=== PATIENT | male | born 1985 | race Caucasian/White ===

== ENCOUNTER 2019-10-28 11:38 | Inpatient (IN) | payer OTHER ==
[~2019-10-28] VITALS: Ht 177.8 cm; Wt 77.4 kg
[2019-10-28] MEDS ORDERED: BENZ1TAB10 PO (12:05)
[2019-10-28] MEDS ORDERED: RISP3 PO (12:05)
[2019-10-28] MEDS ORDERED: FLUO-191 PO (12:05)
[2019-10-28] MEDS ORDERED: IBUP-2071 PO (12:05)
[2019-10-28 12:30] LABS: BASOPHILS % (AUTO) 0.7 % (0.0-2.0); EOSINOPHILS % (AUTO) 4.2 % (1.0-6.0); HEMATOCRIT 40.8 % (41-53); HEMOGLOBIN 13.9 g/dL (13.5-17.5); LYMPHOCYTES # (AUTO) 1.4 K/uL (1.0-4.8); LYMPHOCYTES % (AUTO) 30.2 % (22.0-44.0); MEAN CORPUSCULAR HEMOGLOBIN 30.8 pg (26.0-34.0); MEAN CORPUSCULAR HGB CONC 34.1 G/dL (31.0-37.0); MEAN CORPUSCULAR VOLUME 90 fL (80-100); MONOCYTES # (AUTO) 0.4 K/uL (0.1-1.0); MONOCYTES % (AUTO) 7.6 % (2.0-9.0); NEUTROPHILS # (AUTO) 2.7 K/uL (1.8-7.7); NEUTROPHILS % (AUTO) 57.3 % (40.0-70.0); PLATELET COUNT (AUTO) 212 K/uL (150-450); RED BLOOD CELL COUNT(AUTO) 4.52 MIL/uL (4.50-5.90); RED CELL DISTRIBUTION WIDTH 13.8 % (11.5-14.5)
[2019-10-28 12:40] LABS: ANION GAP 6 mmol/L (8-16); CALCIUM, TOTAL 9.4 mg/dL (8.8-10.5); CARBON DIOXIDE 30 mmol/L (22-29); CHLORIDE 104 mmol/L (98-107); CREATININE 0.64 mg/dL (0.60-1.30); GLOMERULAR FILTR. RATE CALC > 60 mL/min (>60); GLUCOSE,RANDOM 105 mg/dL (70-110); POTASSIUM 4.2 mmol/L (3.5-5.1); SODIUM SERUM 140 mmol/L (136-145); UREA NITROGEN, BLOOD 8 mg/dL (7-18)
[2019-10-28 12:46] LABS: ALANINE AMINOTRANSFERASE 45 U/L (12-78); ALBUMIN 3.7 g/dL (3.4-5.0); ALKALINE PHOSPHATASE 53 U/L (46-116); ASPARTATE AMINOTRANSFERASE 38 U/L (15-37); BILIRUBIN,TOTAL 0.4 mg/dL (0.1-1.0); TOTAL PROTEIN, SERUM 7.5 g/dL (6.4-8.2)
[2019-10-28] MEDS ORDERED: ONDANSETRON HCL 4 MG/2 ML VIAL IVP PRN (15:00)
[2019-10-28] MEDS ORDERED: ACETAMINOPHEN 325 MG TABLET PO PRN (15:00)
[2019-10-28] MEDS ORDERED: 0.9% SODIUM CHLORIDE 10 ML SYRINGE IVP PRN (15:00)
[2019-10-28] MEDS ORDERED: ALBUTEROL SULFATE HFA 90 MCG/PUFF 8 GM INHALER IH PRN (16:15)
[2019-10-28] MEDS ORDERED: LOPERAMIDE HCL 2 MG CAPSULE PO PRN (16:15)
[2019-10-28] MEDS ORDERED: PETROLATUM,WHITE 28 GM JELLY TP PRN (16:15)
[2019-10-28] MEDS ORDERED: GuaiFENesin/D-METHORPHAN [SUGAR-FREE] 200-20MG/10 ML SYRUP UDCUP PO PRN (16:15)
[2019-10-28] MEDS ORDERED: ONDANSETRON HCL 4 MG TABLET PO PRN (16:15)
[2019-10-28] MEDS ORDERED: NICOTINE 14 MG/24 HOUR PATCH TD PRN (16:15)
[2019-10-28] MEDS ORDERED: INFLUENZA VIRUS VACCINE QVS 2019-20 (3YR+)/PF 60 MCG/0.5 ML SYRINGE IM ONE (16:15)
[2019-10-28] MEDS ORDERED: MAGNESIUM HYDROXIDE SUSPENSION 30 ML UDCUP PO PRN (16:15)
[2019-10-28] MEDS ORDERED: MAG HYDROX/AL HYDROX/SIMETH ES 30 ML SUSPENSION UDCUP PO PRN (16:15)
[2019-10-28] MEDS ORDERED: CloNIDine HCL 0.1 MG TABLET PO PRN (16:15)
[2019-10-28 18:34] LABS: APPEARANCE,URINE CLEAR (CLEAR); BILIRUBIN,URINE NEGATIVE (NEGATIVE); GLUCOSE, URINE (UA) NEGATIVE (NEGATIVE); KETONES,URINE NEGATIVE (NEGATIVE); LEUKOCYTE ESTERASE ,URINE NEGATIVE (NEGATIVE); NITRATE,URINE NEGATIVE (NEGATIVE); OCCULT BLOOD,URINE NEGATIVE (NEGATIVE); PROTEIN,URINE NEGATIVE (NEGATIVE); UROBILINOGEN,URINE 0.2 mg/dL (<=1.0)
[2019-10-28 18:39] LABS: AMPHET/METH SCREEN,URINE NEGATIVE (NEGATIVE); BARBITURATE SCREEN, URINE NEGATIVE (NEGATIVE); BENZODIAZEPINES SCREEN,URINE NEGATIVE (NEGATIVE); CANNABINOID SCREEN,URINE NEGATIVE (NEGATIVE); COCAINE SCREEN,URINE NEGATIVE (NEGATIVE); METHADONE SCREEN, URINE NEGATIVE (NEGATIVE); OPIATE SCREEN,URINE NEGATIVE (NEGATIVE); PHENCYCLIDINE SCREEN,URINE NEGATIVE (NEGATIVE)
[2019-10-28] MEDS ORDERED: ZOLPIDEM TARTRATE 5 MG TABLET PO ONE (20:15)
[2019-10-28 20:31] VITALS: BP 125/77
[2019-10-29 05:30] VITALS: BP 105/70
[2019-10-29 08:35] VITALS: BP 112/79
[2019-10-29] MEDS: ACETAMINOPHEN 325 MG TABLET PO PRN (09:47)
[2019-10-29] MEDS: FLUoxetine HCL 20 MG CAPSULE PO SCH (18:19)
[2019-10-29 20:10] VITALS: BP 123/67
[2019-10-29] MEDS: BusPIRone HCL 10 MG TABLET PO SCH (20:16)
[2019-10-29] MEDS: BENZTROPINE MESYLATE 1 MG TABLET PO SCH (20:16)
[2019-10-29] MEDS: RisperiDONE 3 MG TABLET PO SCH (20:16)
[2019-10-30 05:35] VITALS: BP 106/64
[2019-10-30 07:21] VITALS: BP 123/70
[2019-10-30] MEDS: FLUoxetine HCL 20 MG CAPSULE PO SCH (09:31)
[2019-10-30] MEDS: BENZTROPINE MESYLATE 1 MG TABLET PO SCH ×2 (09:31→20:11)
[2019-10-30] MEDS: BusPIRone HCL 10 MG TABLET PO SCH ×2 (09:31→20:11)
[2019-10-30 16:00] VITALS: BP 115/63
[2019-10-30 19:18] VITALS: BP 119/70
[2019-10-30] MEDS: RisperiDONE 3 MG TABLET PO SCH (20:11)
[2019-10-31 04:28] VITALS: BP 107/64
[2019-10-31 07:40] VITALS: BP 99/51
[2019-10-31] MEDS: FLUoxetine HCL 20 MG CAPSULE PO SCH (07:58)
[2019-10-31] MEDS: BENZTROPINE MESYLATE 1 MG TABLET PO SCH ×2 (07:59→20:14)
[2019-10-31] MEDS: BusPIRone HCL 10 MG TABLET PO SCH ×2 (07:59→20:14)
[2019-10-31 15:38] VITALS: BP 121/65
[2019-10-31] MEDS: RisperiDONE 3 MG TABLET PO SCH (20:16)
[2019-10-31 20:39] VITALS: BP 123/69
[2019-11-01 04:11] VITALS: BP 113/56
[2019-11-01] MEDS: BENZTROPINE MESYLATE 1 MG TABLET PO SCH ×2 (08:09→20:31)
[2019-11-01] MEDS: BusPIRone HCL 10 MG TABLET PO SCH ×2 (08:09→20:31)
[2019-11-01] MEDS: FLUoxetine HCL 20 MG CAPSULE PO SCH (08:10)
[2019-11-01 08:39] VITALS: BP 122/65
[2019-11-01 16:10] VITALS: BP 136/77
[2019-11-01 20:00] VITALS: BP 122/81
[2019-11-01] MEDS: RisperiDONE 2 MG TABLET PO SCH (20:31)
[2019-11-02 04:00] VITALS: BP 130/69
[2019-11-02 07:26] VITALS: BP 111/72
[2019-11-02] MEDS: BENZTROPINE MESYLATE 1 MG TABLET PO SCH ×2 (08:22→20:17)
[2019-11-02] MEDS: DOCUSATE SODIUM 100 MG CAPSULE PO PRN (08:22)
[2019-11-02] MEDS: FLUoxetine HCL 20 MG CAPSULE PO SCH (08:22)
[2019-11-02] MEDS: RisperiDONE 2 MG TABLET PO SCH ×2 (08:23→20:17)
[2019-11-02] MEDS: BusPIRone HCL 10 MG TABLET PO SCH ×3 (08:23→20:17)
[2019-11-02 16:10] VITALS: BP 122/66
[2019-11-02] MEDS: IBUPROFEN 400 MG TABLET PO PRN (16:24)
[2019-11-02 20:05] VITALS: BP 100/50
[2019-11-03 05:00] VITALS: BP 117/69
[2019-11-03 07:45] VITALS: BP 112/65
[2019-11-03] MEDS: RisperiDONE 2 MG TABLET PO SCH (07:51)
[2019-11-03] MEDS: BusPIRone HCL 10 MG TABLET PO SCH ×3 (07:51→20:06)
[2019-11-03] MEDS: BENZTROPINE MESYLATE 1 MG TABLET PO SCH ×2 (07:51→20:06)
[2019-11-03] MEDS: FLUoxetine HCL 20 MG CAPSULE PO SCH (07:51)
[2019-11-03 14:31] VITALS: BP 118/69
[2019-11-03] MEDS: IBUPROFEN 400 MG TABLET PO PRN (16:12)
[2019-11-03 19:28] VITALS: BP 122/78
[2019-11-03] MEDS: RisperiDONE 3 MG TABLET PO SCH (20:06)
[2019-11-04 05:29] VITALS: BP 121/71
[2019-11-04 07:25] VITALS: BP 118/69
[2019-11-04] MEDS: RisperiDONE 3 MG TABLET PO SCH ×2 (07:52→20:33)
[2019-11-04] MEDS: BusPIRone HCL 10 MG TABLET PO SCH ×3 (07:52→20:33)
[2019-11-04] MEDS: BENZTROPINE MESYLATE 1 MG TABLET PO SCH ×2 (07:52→20:33)
[2019-11-04] MEDS: FLUoxetine HCL 20 MG CAPSULE PO SCH (07:52)
[2019-11-04 08:19] LABS: BASOPHILS % (AUTO) 0.5 % (0.0-2.0); EOSINOPHILS % (AUTO) 3.8 % (1.0-6.0); HEMATOCRIT 39.7 % (41-53); HEMOGLOBIN 13.5 g/dL (13.5-17.5); LYMPHOCYTES # (AUTO) 2.3 K/uL (1.0-4.8); LYMPHOCYTES % (AUTO) 43.5 % (22.0-44.0); MEAN CORPUSCULAR HEMOGLOBIN 30.9 pg (26.0-34.0); MEAN CORPUSCULAR HGB CONC 34.1 G/dL (31.0-37.0); MEAN CORPUSCULAR VOLUME 91 fL (80-100); MONOCYTES # (AUTO) 0.6 K/uL (0.1-1.0); NEUTROPHILS # (AUTO) 2.1 K/uL (1.8-7.7); NEUTROPHILS % (AUTO) 41.2 % (40.0-70.0); PLATELET COUNT (AUTO) 255 K/uL (150-450); RED BLOOD CELL COUNT(AUTO) 4.38 MIL/uL (4.50-5.90); RED CELL DISTRIBUTION WIDTH 13.6 % (11.5-14.5)
[2019-11-04 08:32] LABS: ANION GAP 7 mmol/L (8-16); CALCIUM, TOTAL 8.7 mg/dL (8.8-10.5); CARBON DIOXIDE 29 mmol/L (22-29); CHLORIDE 104 mmol/L (98-107); CREATININE 0.75 mg/dL (0.60-1.30); GLOMERULAR FILTR. RATE CALC > 60 mL/min (>60); GLUCOSE,RANDOM 78 mg/dL (70-110); POTASSIUM 4.1 mmol/L (3.5-5.1); SODIUM SERUM 140 mmol/L (136-145); UREA NITROGEN, BLOOD 9 mg/dL (7-18)
[2019-11-04] MEDS: IBUPROFEN 400 MG TABLET PO PRN (13:44)
[2019-11-04 16:39] VITALS: BP 116/70
[2019-11-04 19:33] VITALS: BP 124/70
[2019-11-05 04:20] VITALS: BP 97/57
[2019-11-05 07:59] VITALS: BP 114/63
[2019-11-05] MEDS: BENZTROPINE MESYLATE 1 MG TABLET PO SCH ×2 (08:55→20:20)
[2019-11-05] MEDS: IBUPROFEN 400 MG TABLET PO PRN (08:55)
[2019-11-05] MEDS: FLUoxetine HCL 20 MG CAPSULE PO SCH (08:55)
[2019-11-05] MEDS: RisperiDONE 3 MG TABLET PO SCH ×2 (08:56→20:19)
[2019-11-05] MEDS: BusPIRone HCL 10 MG TABLET PO SCH ×3 (09:19→20:19)
[2019-11-05] MEDS: ACETAMINOPHEN 325 MG TABLET PO PRN (14:33)
[2019-11-05 16:19] VITALS: BP 136/78
[2019-11-05 20:01] VITALS: BP 117/75
[2019-11-06 00:06] VITALS: BP 114/70
[2019-11-06 05:08] VITALS: BP 114/64
[2019-11-06 07:49] VITALS: BP 118/71
[2019-11-06] MEDS: BusPIRone HCL 10 MG TABLET PO SCH ×3 (08:04→20:15)
[2019-11-06] MEDS: FLUoxetine HCL 20 MG CAPSULE PO SCH (08:04)
[2019-11-06] MEDS: BENZTROPINE MESYLATE 1 MG TABLET PO SCH ×2 (08:05→20:15)
[2019-11-06] MEDS: RisperiDONE 3 MG TABLET PO SCH ×2 (08:05→21:11)
[2019-11-06] MEDS: ACETAMINOPHEN 325 MG TABLET PO PRN (18:48)
[2019-11-07 04:53] VITALS: BP 118/65
[2019-11-07 07:32] VITALS: BP 99/51
[2019-11-07] MEDS: BusPIRone HCL 10 MG TABLET PO SCH ×3 (08:16→20:39)
[2019-11-07] MEDS: BENZTROPINE MESYLATE 1 MG TABLET PO SCH ×2 (08:16→20:38)
[2019-11-07] MEDS: RisperiDONE 3 MG TABLET PO SCH ×2 (08:16→20:39)
[2019-11-07] MEDS: FLUoxetine HCL 20 MG CAPSULE PO SCH (08:16)
[2019-11-07] MEDS: ACETAMINOPHEN 325 MG TABLET PO PRN (09:59)
[2019-11-07] MEDS: DIVALPROEX SODIUM 500 MG DR TABLET PO SCH ×2 (12:59→20:39)
[2019-11-07 16:20] VITALS: BP 122/76
[2019-11-08 00:17] VITALS: BP 100/54
[2019-11-08 04:56] VITALS: BP 103/57
[2019-11-08] MEDS: DIVALPROEX SODIUM 500 MG DR TABLET PO SCH ×2 (08:10→20:31)
[2019-11-08] MEDS: RisperiDONE 3 MG TABLET PO SCH ×2 (08:10→20:31)
[2019-11-08] MEDS: BENZTROPINE MESYLATE 1 MG TABLET PO SCH ×2 (08:10→20:31)
[2019-11-08] MEDS: BusPIRone HCL 10 MG TABLET PO SCH ×3 (08:10→20:31)
[2019-11-08] MEDS: FLUoxetine HCL 20 MG CAPSULE PO SCH (08:10)
[2019-11-08 08:15] VITALS: BP 131/81
[2019-11-08 16:02] VITALS: BP 118/71
[2019-11-08] MEDS: ACETAMINOPHEN 325 MG TABLET PO PRN (18:53)
[2019-11-08 19:50] VITALS: BP 123/67
[2019-11-09 05:20] VITALS: BP 106/67
[2019-11-09] MEDS: RisperiDONE 3 MG TABLET PO SCH ×2 (07:55→22:13)
[2019-11-09] MEDS: FLUoxetine HCL 20 MG CAPSULE PO SCH (07:55)
[2019-11-09] MEDS: BusPIRone HCL 10 MG TABLET PO SCH ×3 (07:55→22:12)
[2019-11-09] MEDS: DIVALPROEX SODIUM 500 MG DR TABLET PO SCH ×2 (07:56→22:12)
[2019-11-09] MEDS: BENZTROPINE MESYLATE 1 MG TABLET PO SCH ×2 (07:56→22:12)
[2019-11-09 08:21] VITALS: BP 111/64
[2019-11-09] MEDS: IBUPROFEN 400 MG TABLET PO PRN (11:16)
[2019-11-09] MEDS: ACETAMINOPHEN 325 MG TABLET PO PRN (13:32)
[2019-11-09 16:04] VITALS: BP 121/69
[2019-11-09 20:27] VITALS: BP 126/67
[2019-11-10 05:57] VITALS: BP 127/73
[2019-11-10] MEDS: RisperiDONE 3 MG TABLET PO SCH (08:23)
[2019-11-10] MEDS: BENZTROPINE MESYLATE 1 MG TABLET PO SCH ×2 (08:24→20:06)
[2019-11-10] MEDS: DOCUSATE SODIUM 100 MG CAPSULE PO PRN (08:24)
[2019-11-10] MEDS: DIVALPROEX SODIUM 500 MG DR TABLET PO SCH ×2 (08:24→20:05)
[2019-11-10] MEDS: BusPIRone HCL 10 MG TABLET PO SCH ×3 (08:24→20:06)
[2019-11-10] MEDS: FLUoxetine HCL 20 MG CAPSULE PO SCH (08:24)
[2019-11-10 08:25] VITALS: BP 125/77
[2019-11-10 11:30] VITALS: BP 116/70
[2019-11-10] MEDS: ACETAMINOPHEN 325 MG TABLET PO PRN (13:11)
[2019-11-10 14:43] VITALS: BP 105/64
[2019-11-10 19:15] VITALS: BP 112/72
[2019-11-10] MEDS: RisperiDONE 4 MG TABLET PO SCH (20:06)
[2019-11-11 03:00] VITALS: BP 109/75
[2019-11-11] MEDS: ACETAMINOPHEN 325 MG TABLET PO PRN ×2 (03:26→12:02)
[2019-11-11] MEDS: DOCUSATE SODIUM 100 MG CAPSULE PO PRN (08:35)
[2019-11-11] MEDS: FLUoxetine HCL 20 MG CAPSULE PO SCH (08:35)
[2019-11-11] MEDS: DIVALPROEX SODIUM 500 MG DR TABLET PO SCH ×2 (08:35→19:50)
[2019-11-11] MEDS: BENZTROPINE MESYLATE 1 MG TABLET PO SCH ×2 (08:35→19:50)
[2019-11-11] MEDS: BusPIRone HCL 10 MG TABLET PO SCH ×3 (08:35→19:50)
[2019-11-11] MEDS: RisperiDONE 4 MG TABLET PO SCH ×2 (08:35→19:50)
[2019-11-11 10:03] VITALS: BP 104/66
[2019-11-11 16:02] VITALS: BP 123/68
[2019-11-11 19:32] VITALS: BP 122/76
[2019-11-12 04:43] VITALS: BP 116/94
[2019-11-12] MEDS: FLUoxetine HCL 20 MG CAPSULE PO SCH (08:04)
[2019-11-12] MEDS: DIVALPROEX SODIUM 500 MG DR TABLET PO SCH ×2 (08:04→20:32)
[2019-11-12] MEDS: BENZTROPINE MESYLATE 1 MG TABLET PO SCH ×2 (08:04→20:32)
[2019-11-12] MEDS: BusPIRone HCL 10 MG TABLET PO SCH (08:04)
[2019-11-12] MEDS: RisperiDONE 4 MG TABLET PO SCH ×2 (08:04→20:32)
[2019-11-12 08:07] VITALS: BP 110/65
[2019-11-12] MEDS: ACETAMINOPHEN 325 MG TABLET PO PRN (10:35)
[2019-11-12 13:56] VITALS: BP 101/58
[2019-11-12] MEDS: BusPIRone HCL 15 MG TABLET PO SCH ×2 (15:20→20:33)
[2019-11-12 16:12] VITALS: BP 112/68
[2019-11-12 20:01] VITALS: BP 116/62
[2019-11-13 04:00] VITALS: BP 119/62
[2019-11-13 08:04] VITALS: BP 111/63
[2019-11-13] MEDS: DIVALPROEX SODIUM 500 MG DR TABLET PO SCH ×2 (08:34→19:53)
[2019-11-13] MEDS: BENZTROPINE MESYLATE 1 MG TABLET PO SCH ×2 (08:34→19:53)
[2019-11-13] MEDS: RisperiDONE 4 MG TABLET PO SCH ×2 (08:34→19:53)
[2019-11-13] MEDS: BusPIRone HCL 15 MG TABLET PO SCH ×3 (08:34→19:53)
[2019-11-13] MEDS: FLUoxetine HCL 20 MG CAPSULE PO SCH (08:34)
[2019-11-13 15:04] VITALS: BP 107/68
[2019-11-13 19:41] VITALS: BP 109/65
[2019-11-14 05:23] VITALS: BP 119/68
[2019-11-14] MEDS: FLUoxetine HCL 20 MG CAPSULE PO SCH (08:24)
[2019-11-14] MEDS: DIVALPROEX SODIUM 500 MG DR TABLET PO SCH ×2 (08:24→20:23)
[2019-11-14] MEDS: BENZTROPINE MESYLATE 1 MG TABLET PO SCH ×2 (08:24→20:23)
[2019-11-14] MEDS: BusPIRone HCL 15 MG TABLET PO SCH ×3 (08:24→20:23)
[2019-11-14] MEDS: RisperiDONE 4 MG TABLET PO SCH ×2 (08:24→20:23)
[2019-11-14 08:26] VITALS: BP 126/65
[2019-11-14 16:22] VITALS: BP 114/56
[2019-11-14] MEDS: ACETAMINOPHEN 325 MG TABLET PO PRN (18:45)
[2019-11-14 19:30] VITALS: BP 115/70
[2019-11-14 23:30] VITALS: BP 112/68
[2019-11-15 04:30] VITALS: BP 117/65
[2019-11-15 07:45] VITALS: BP 110/69
[2019-11-15] MEDS: BENZTROPINE MESYLATE 1 MG TABLET PO SCH ×2 (08:04→20:14)
[2019-11-15] MEDS: RisperiDONE 4 MG TABLET PO SCH ×2 (08:05→20:14)
[2019-11-15] MEDS: DIVALPROEX SODIUM 500 MG DR TABLET PO SCH ×2 (08:05→20:13)
[2019-11-15] MEDS: BusPIRone HCL 15 MG TABLET PO SCH ×3 (08:05→20:14)
[2019-11-15] MEDS: FLUoxetine HCL 20 MG CAPSULE PO SCH (08:05)
[2019-11-15 11:50] VITALS: BP 108/61
[2019-11-15] MEDS: FLUTICASONE PROPIONATE 50 MCG/SPRAY 16 GM NASAL SPRAY NASAL SCH (16:02)
[2019-11-15 16:44] VITALS: BP 106/67
[2019-11-15 20:18] VITALS: BP 101/62
[2019-11-16 04:00] VITALS: BP 112/68
[2019-11-16 08:07] VITALS: BP 125/75
[2019-11-16] MEDS: FLUTICASONE PROPIONATE 50 MCG/SPRAY 16 GM NASAL SPRAY NASAL SCH (09:51)
[2019-11-16] MEDS: BusPIRone HCL 15 MG TABLET PO SCH ×3 (09:53→20:27)
[2019-11-16] MEDS: BENZTROPINE MESYLATE 1 MG TABLET PO SCH ×2 (09:54→20:27)
[2019-11-16] MEDS: DIVALPROEX SODIUM 500 MG DR TABLET PO SCH ×2 (09:55→20:27)
[2019-11-16] MEDS: FLUoxetine HCL 20 MG CAPSULE PO SCH (09:56)
[2019-11-16] MEDS: RisperiDONE 4 MG TABLET PO SCH ×2 (09:57→20:27)
[2019-11-16 14:36] VITALS: BP 112/70
[2019-11-16] MEDS: ACETAMINOPHEN 325 MG TABLET PO PRN (18:49)
[2019-11-16 19:40] VITALS: BP 115/71
[2019-11-17 04:28] VITALS: BP 108/66
[2019-11-17] MEDS: FLUTICASONE PROPIONATE 50 MCG/SPRAY 16 GM NASAL SPRAY NASAL SCH (04:32)
[2019-11-17 08:00] VITALS: BP 127/69
[2019-11-17] MEDS: BusPIRone HCL 15 MG TABLET PO SCH ×3 (08:48→20:59)
[2019-11-17] MEDS: BENZTROPINE MESYLATE 1 MG TABLET PO SCH ×2 (08:48→20:59)
[2019-11-17] MEDS: RisperiDONE 4 MG TABLET PO SCH ×2 (08:49→20:59)
[2019-11-17] MEDS: DIVALPROEX SODIUM 500 MG DR TABLET PO SCH ×2 (08:49→20:59)
[2019-11-17] MEDS: FLUoxetine HCL 20 MG CAPSULE PO SCH (08:50)
[2019-11-17 15:20] VITALS: BP 105/70
[2019-11-17 19:45] VITALS: BP 115/76
[2019-11-18 04:26] VITALS: BP 105/66
[2019-11-18] MEDS: BusPIRone HCL 15 MG TABLET PO SCH (08:04)
[2019-11-18] MEDS: FLUTICASONE PROPIONATE 50 MCG/SPRAY 16 GM NASAL SPRAY NASAL SCH (08:04)
[2019-11-18] MEDS: FLUoxetine HCL 20 MG CAPSULE PO SCH (08:05)
[2019-11-18] MEDS: RisperiDONE 4 MG TABLET PO SCH (08:05)
[2019-11-18] MEDS: DIVALPROEX SODIUM 500 MG DR TABLET PO SCH (08:05)
[2019-11-18 08:19] VITALS: BP 108/61
[2019-11-18] MEDS ORDERED: DIVA500T52 PO (08:19)
[2019-11-18] MEDS ORDERED: BENZ1TAB10 PO (08:20)
[2019-11-18] MEDS ORDERED: BUSP15 PO ×2 (08:23)
[2019-11-18] MEDS ORDERED: RISP4 PO (08:25)
[2019-11-18] MEDS: BENZTROPINE MESYLATE 1 MG TABLET PO SCH (08:40)
== END 2019-11-18 12:45 | DRG 885 ==
LOC: EMS 11:39 → 6S 14:55
PROVIDERS: ADMIT Internal Medicine; ATTEND Internal Medicine
DX: F20.9 Schizophrenia, unspecified (principal); R45.851 Suicidal ideations; F17.200 Nicotine dependence, unspecified, uncomplicated; F41.9 Anxiety disorder, unspecified; Z23 Encounter for immunization
CPT/HCPCS: 83735; 90686; G0480; J3535

== ENCOUNTER 2019-11-26 01:53 | Inpatient (IN) | payer OTHER ==
[~2019-11-26] VITALS: Ht 172.7 cm; Wt 78.6 kg
[~2019-11-26 01:53] MED LIST: BENZ1TAB10 PO; BUSP15 PO; DIVA500T52 PO; FLUO-191 PO; IBUP-2071 PO; RISP4 PO
[2019-11-26] MEDS ORDERED: PERTUSS(ACELL),DIPH,TET VAC/PF 0.5 ML VIAL IM ONE (02:15)
[2019-11-26] MEDS ORDERED: BACITRACIN 0.9 GM PACKET OINTMENT TP ONE (02:15)
[2019-11-26] MEDS ORDERED: 0.9% SODIUM CHLORIDE 10 ML SYRINGE IVP PRN ×2 (02:30→14:30)
[2019-11-26] MEDS ORDERED: ACETAMINOPHEN 325 MG TABLET PO PRN (02:30)
[2019-11-26] MEDS ORDERED: ONDANSETRON HCL 4 MG/2 ML VIAL IVP PRN ×2 (02:30→14:30)
[2019-11-26 02:48] LABS: BASOPHILS % (AUTO) 0.4 % (0.0-2.0); EOSINOPHILS % (AUTO) 2.3 % (1.0-6.0); HEMATOCRIT 42.7 % (41-53); HEMOGLOBIN 14.3 g/dL (13.5-17.5); LYMPHOCYTES # (AUTO) 2.1 K/uL (1.0-4.8); LYMPHOCYTES % (AUTO) 39.2 % (22.0-44.0); MEAN CORPUSCULAR HEMOGLOBIN 30.1 pg (26.0-34.0); MEAN CORPUSCULAR HGB CONC 33.5 G/dL (31.0-37.0); MEAN CORPUSCULAR VOLUME 90 fL (80-100); MONOCYTES # (AUTO) 0.5 K/uL (0.1-1.0); MONOCYTES % (AUTO) 9.8 % (2.0-9.0); NEUTROPHILS # (AUTO) 2.6 K/uL (1.8-7.7); NEUTROPHILS % (AUTO) 48.3 % (40.0-70.0); PLATELET COUNT (AUTO) 201 K/uL (150-450); RED BLOOD CELL COUNT(AUTO) 4.75 MIL/uL (4.50-5.90); RED CELL DISTRIBUTION WIDTH 13.7 % (11.5-14.5)
[2019-11-26 02:52] LABS: ANION GAP 10 mmol/L (8-16); CARBON DIOXIDE 28 mmol/L (22-29); CHLORIDE 102 mmol/L (98-107); CREATININE 0.83 mg/dL (0.60-1.30); GLOMERULAR FILTR. RATE CALC > 60 mL/min (>60); GLUCOSE,RANDOM 88 mg/dL (70-110); POTASSIUM 3.5 mmol/L (3.5-5.1); SODIUM SERUM 140 mmol/L (136-145); UREA NITROGEN, BLOOD 8 mg/dL (7-18)
[2019-11-26 02:57] LABS: ALANINE AMINOTRANSFERASE 23 U/L (12-78); ALBUMIN 3.9 g/dL (3.4-5.0); ALKALINE PHOSPHATASE 56 U/L (46-116); ASPARTATE AMINOTRANSFERASE 11 U/L (15-37); BILIRUBIN,TOTAL 0.2 mg/dL (0.1-1.0); TOTAL PROTEIN, SERUM 7.8 g/dL (6.4-8.2)
[2019-11-26 03:34] LABS: AMPHET/METH SCREEN,URINE NEGATIVE (NEGATIVE); BARBITURATE SCREEN, URINE NEGATIVE (NEGATIVE); BENZODIAZEPINES SCREEN,URINE NEGATIVE (NEGATIVE); CANNABINOID SCREEN,URINE NEGATIVE (NEGATIVE); COCAINE SCREEN,URINE NEGATIVE (NEGATIVE); METHADONE SCREEN, URINE NEGATIVE (NEGATIVE); OPIATE SCREEN,URINE NEGATIVE (NEGATIVE)
[2019-11-26 03:41] LABS: PHENCYCLIDINE SCREEN,URINE NEGATIVE (NEGATIVE)
[2019-11-26 03:50] VITALS: BP 135/78
[2019-11-26 07:28] VITALS: BP 95/59
[2019-11-26] MEDS ORDERED: ONDANSETRON HCL 4 MG/2 ML VIAL PO PRN (08:30)
[2019-11-26] MEDS: DIVALPROEX SODIUM 500 MG ER TABLET PO SCH ×2 (11:19→20:15)
[2019-11-26] MEDS: FLUoxetine HCL 20 MG CAPSULE PO SCH (11:19)
[2019-11-26] MEDS: BusPIRone HCL 15 MG TABLET PO SCH ×2 (11:19→20:15)
[2019-11-26] MEDS: OLANZapine 10 MG TABLET PO SCH ×2 (11:19→20:15)
[2019-11-26] MEDS ORDERED: OxyCODONE HCL/ACETAMINOPHEN 5-325 MG TABLET PO PRN ×2 (14:30)
[2019-11-26 16:00] VITALS: BP 108/58
[2019-11-26 19:50] VITALS: BP 113/73
[2019-11-26] MEDS: DOCUSATE SODIUM 100 MG CAPSULE PO SCH (20:15)
[2019-11-26] MEDS: BENZTROPINE MESYLATE 1 MG TABLET PO SCH (20:15)
[2019-11-27 04:10] VITALS: BP 109/76
[2019-11-27 07:37] VITALS: BP 133/78
[2019-11-27 07:51] LABS: BASOPHILS % (AUTO) 0.2 % (0.0-2.0); HEMATOCRIT 43.1 % (41-53); HEMOGLOBIN 14.6 g/dL (13.5-17.5); LYMPHOCYTES # (AUTO) 2.5 K/uL (1.0-4.8); LYMPHOCYTES % (AUTO) 28.9 % (22.0-44.0); MEAN CORPUSCULAR HEMOGLOBIN 30.7 pg (26.0-34.0); MEAN CORPUSCULAR HGB CONC 33.9 G/dL (31.0-37.0); MEAN CORPUSCULAR VOLUME 91 fL (80-100); MONOCYTES # (AUTO) 0.9 K/uL (0.1-1.0); MONOCYTES % (AUTO) 9.9 % (2.0-9.0); NEUTROPHILS # (AUTO) 5.1 K/uL (1.8-7.7); PLATELET COUNT (AUTO) 202 K/uL (150-450); RED BLOOD CELL COUNT(AUTO) 4.75 MIL/uL (4.50-5.90); RED CELL DISTRIBUTION WIDTH 13.5 % (11.5-14.5)
[2019-11-27 08:00] LABS: ANION GAP 8 mmol/L (8-16); CALCIUM, TOTAL 8.8 mg/dL (8.8-10.5); CARBON DIOXIDE 29 mmol/L (22-29); CHLORIDE 103 mmol/L (98-107); GLOMERULAR FILTR. RATE CALC > 60 mL/min (>60); GLUCOSE,RANDOM 78 mg/dL (70-110); POTASSIUM 3.9 mmol/L (3.5-5.1); SODIUM SERUM 140 mmol/L (136-145); UREA NITROGEN, BLOOD 10 mg/dL (7-18)
[2019-11-27] MEDS: OLANZapine 10 MG TABLET PO SCH ×2 (08:09→20:04)
[2019-11-27] MEDS: BusPIRone HCL 15 MG TABLET PO SCH ×2 (08:09→20:04)
[2019-11-27] MEDS: FLUoxetine HCL 20 MG CAPSULE PO SCH (08:10)
[2019-11-27] MEDS: DOCUSATE SODIUM 100 MG CAPSULE PO SCH ×2 (08:10→20:04)
[2019-11-27] MEDS: DIVALPROEX SODIUM 500 MG ER TABLET PO SCH ×2 (08:10→20:04)
[2019-11-27 16:21] VITALS: BP 108/72
[2019-11-27 19:34] VITALS: BP 127/71
[2019-11-27] MEDS: BENZTROPINE MESYLATE 1 MG TABLET PO SCH (21:00)
[2019-11-28 04:29] VITALS: BP 127/69
[2019-11-28 07:59] LABS: BASOPHILS % (AUTO) 0.5 % (0.0-2.0); EOSINOPHILS % (AUTO) 3.3 % (1.0-6.0); HEMATOCRIT 42.5 % (41-53); HEMOGLOBIN 14.5 g/dL (13.5-17.5); LYMPHOCYTES # (AUTO) 2.7 K/uL (1.0-4.8); MEAN CORPUSCULAR HEMOGLOBIN 30.7 pg (26.0-34.0); MEAN CORPUSCULAR HGB CONC 34.2 G/dL (31.0-37.0); MEAN CORPUSCULAR VOLUME 90 fL (80-100); MONOCYTES % (AUTO) 13.3 % (2.0-9.0); NEUTROPHILS # (AUTO) 3.3 K/uL (1.8-7.7); NEUTROPHILS % (AUTO) 45.9 % (40.0-70.0); PLATELET COUNT (AUTO) 203 K/uL (150-450); RED BLOOD CELL COUNT(AUTO) 4.74 MIL/uL (4.50-5.90); RED CELL DISTRIBUTION WIDTH 13.7 % (11.5-14.5)
[2019-11-28 08:03] VITALS: BP 123/78
[2019-11-28 08:16] LABS: ANION GAP 9 mmol/L (8-16); CALCIUM, TOTAL 8.9 mg/dL (8.8-10.5); CARBON DIOXIDE 28 mmol/L (22-29); CHLORIDE 105 mmol/L (98-107); CHOL/HDL RATIO 4.5 (4.2-7.3); CHOLESTEROL 153 mg/dL (131-200); CREATININE 0.94 mg/dL (0.60-1.30); GLOMERULAR FILTR. RATE CALC > 60 mL/min (>60); GLUCOSE,RANDOM 87 mg/dL (70-110); HDL CHOLESTEROL 34 mg/dL (40-60); LDL CHOL (CALC.) 87 mg/dL (0-130); POTASSIUM 4.1 mmol/L (3.5-5.1); SODIUM SERUM 142 mmol/L (136-145); TRIGLYCERIDES 162 mg/dL (15-150); UREA NITROGEN, BLOOD 10 mg/dL (7-18)
[2019-11-28] MEDS: MULTIVITAMINS WITH MINERALS, THERAPEUTIC TABLET PO SCH (08:34)
[2019-11-28] MEDS: DOCUSATE SODIUM 100 MG CAPSULE PO SCH ×2 (08:34→20:03)
[2019-11-28] MEDS: BusPIRone HCL 15 MG TABLET PO SCH ×2 (08:34→20:03)
[2019-11-28] MEDS: FLUoxetine HCL 20 MG CAPSULE PO SCH (08:34)
[2019-11-28] MEDS: OLANZapine 10 MG TABLET PO SCH ×2 (08:34→20:03)
[2019-11-28] MEDS: DIVALPROEX SODIUM 500 MG ER TABLET PO SCH ×2 (08:35→20:03)
[2019-11-28 15:44] VITALS: BP 109/57
[2019-11-28] MEDS: BENZTROPINE MESYLATE 1 MG TABLET PO SCH (20:03)
[2019-11-28 20:09] VITALS: BP 118/72
[2019-11-29 04:15] VITALS: BP 113/79
[2019-11-29 06:55] LABS: BASOPHILS % (AUTO) 0.3 % (0.0-2.0); EOSINOPHILS % (AUTO) 3.5 % (1.0-6.0); HEMATOCRIT 42.8 % (41-53); HEMOGLOBIN 14.6 g/dL (13.5-17.5); LYMPHOCYTES # (AUTO) 2.4 K/uL (1.0-4.8); LYMPHOCYTES % (AUTO) 35.3 % (22.0-44.0); MEAN CORPUSCULAR HEMOGLOBIN 30.7 pg (26.0-34.0); MEAN CORPUSCULAR VOLUME 90 fL (80-100); MONOCYTES # (AUTO) 0.7 K/uL (0.1-1.0); MONOCYTES % (AUTO) 10.9 % (2.0-9.0); NEUTROPHILS # (AUTO) 3.4 K/uL (1.8-7.7); PLATELET COUNT (AUTO) 193 K/uL (150-450); RED BLOOD CELL COUNT(AUTO) 4.74 MIL/uL (4.50-5.90); RED CELL DISTRIBUTION WIDTH 13.6 % (11.5-14.5)
[2019-11-29 07:29] VITALS: BP 104/65
[2019-11-29] MEDS: DOCUSATE SODIUM 100 MG CAPSULE PO SCH ×3 (08:09→20:05)
[2019-11-29] MEDS: BusPIRone HCL 15 MG TABLET PO SCH ×3 (08:09→20:05)
[2019-11-29] MEDS: OLANZapine 10 MG TABLET PO SCH ×3 (08:09→20:05)
[2019-11-29] MEDS: MULTIVITAMINS WITH MINERALS, THERAPEUTIC TABLET PO SCH ×2 (08:09→08:24)
[2019-11-29] MEDS: FLUoxetine HCL 20 MG CAPSULE PO SCH ×2 (08:09→08:24)
[2019-11-29] MEDS: DIVALPROEX SODIUM 500 MG ER TABLET PO SCH ×3 (08:09→20:05)
[2019-11-29 15:31] VITALS: BP 111/74
[2019-11-29 19:35] VITALS: BP 119/73
[2019-11-29] MEDS: BENZTROPINE MESYLATE 1 MG TABLET PO SCH (20:05)
[2019-11-30 04:33] VITALS: BP 114/74
[2019-11-30] MEDS: DOCUSATE SODIUM 100 MG CAPSULE PO SCH ×2 (08:02→20:16)
[2019-11-30] MEDS: MULTIVITAMINS WITH MINERALS, THERAPEUTIC TABLET PO SCH (08:02)
[2019-11-30] MEDS: BusPIRone HCL 15 MG TABLET PO SCH ×2 (08:03→20:16)
[2019-11-30] MEDS: DIVALPROEX SODIUM 500 MG ER TABLET PO SCH ×2 (08:03→20:16)
[2019-11-30] MEDS: FLUoxetine HCL 20 MG CAPSULE PO SCH (08:03)
[2019-11-30] MEDS: OLANZapine 10 MG TABLET PO SCH ×2 (08:03→20:16)
[2019-11-30 08:07] VITALS: BP 110/74
[2019-11-30 08:09] LABS: BASOPHILS % (AUTO) 0.2 % (0.0-2.0); EOSINOPHILS % (AUTO) 3.6 % (1.0-6.0); HEMATOCRIT 42.2 % (41-53); HEMOGLOBIN 14.7 g/dL (13.5-17.5); LYMPHOCYTES # (AUTO) 2.5 K/uL (1.0-4.8); LYMPHOCYTES % (AUTO) 37.5 % (22.0-44.0); MEAN CORPUSCULAR HEMOGLOBIN 31.4 pg (26.0-34.0); MEAN CORPUSCULAR HGB CONC 34.8 G/dL (31.0-37.0); MEAN CORPUSCULAR VOLUME 90 fL (80-100); MONOCYTES # (AUTO) 0.7 K/uL (0.1-1.0); MONOCYTES % (AUTO) 11.3 % (2.0-9.0); NEUTROPHILS # (AUTO) 3.1 K/uL (1.8-7.7); NEUTROPHILS % (AUTO) 47.4 % (40.0-70.0); PLATELET COUNT (AUTO) 183 K/uL (150-450); RED BLOOD CELL COUNT(AUTO) 4.68 MIL/uL (4.50-5.90); RED CELL DISTRIBUTION WIDTH 13.6 % (11.5-14.5)
[2019-11-30 11:43] VITALS: BP 114/75
[2019-11-30 19:34] VITALS: BP 109/66
[2019-11-30] MEDS: BENZTROPINE MESYLATE 1 MG TABLET PO SCH (20:16)
[2019-12-01 04:43] VITALS: BP 101/59
[2019-12-01 07:19] VITALS: BP 99/71
[2019-12-01] MEDS: OLANZapine 10 MG TABLET PO SCH ×2 (08:31→20:43)
[2019-12-01] MEDS: DOCUSATE SODIUM 100 MG CAPSULE PO SCH ×2 (08:32→20:44)
[2019-12-01] MEDS: FLUoxetine HCL 20 MG CAPSULE PO SCH (08:32)
[2019-12-01] MEDS: MULTIVITAMINS WITH MINERALS, THERAPEUTIC TABLET PO SCH (08:32)
[2019-12-01] MEDS: DIVALPROEX SODIUM 500 MG ER TABLET PO SCH ×2 (08:32→20:44)
[2019-12-01] MEDS: BusPIRone HCL 15 MG TABLET PO SCH ×2 (08:32→20:43)
[2019-12-01 15:08] VITALS: BP 103/64
[2019-12-01 19:52] VITALS: BP 113/69
[2019-12-01] MEDS: LORATADINE/PSEUDOEPHED SULF 5-120 MG SR TABLET PO SCH (20:43)
[2019-12-01] MEDS: BENZTROPINE MESYLATE 1 MG TABLET PO SCH (20:43)
[2019-12-02 05:55] VITALS: BP 103/69
[2019-12-02 07:34] VITALS: BP 112/78
[2019-12-02] MEDS: OLANZapine 10 MG TABLET PO SCH ×2 (07:56→20:14)
[2019-12-02] MEDS: FLUoxetine HCL 20 MG CAPSULE PO SCH (07:56)
[2019-12-02] MEDS: BusPIRone HCL 15 MG TABLET PO SCH ×2 (07:56→20:15)
[2019-12-02] MEDS: DOCUSATE SODIUM 100 MG CAPSULE PO SCH ×2 (07:57→20:14)
[2019-12-02] MEDS: MULTIVITAMINS WITH MINERALS, THERAPEUTIC TABLET PO SCH (07:57)
[2019-12-02] MEDS: LORATADINE/PSEUDOEPHED SULF 5-120 MG SR TABLET PO SCH ×2 (07:57→20:15)
[2019-12-02] MEDS: DIVALPROEX SODIUM 500 MG ER TABLET PO SCH ×2 (07:57→20:14)
[2019-12-02 15:45] VITALS: BP 108/75
[2019-12-02 19:18] VITALS: BP 104/71
[2019-12-02] MEDS: BENZTROPINE MESYLATE 1 MG TABLET PO SCH (20:14)
[2019-12-03 06:02] VITALS: BP 101/69
[2019-12-03 07:56] VITALS: BP 119/77
[2019-12-03] MEDS: BusPIRone HCL 15 MG TABLET PO SCH (08:12)
[2019-12-03] MEDS: MULTIVITAMINS WITH MINERALS, THERAPEUTIC TABLET PO SCH (08:12)
[2019-12-03] MEDS: DIVALPROEX SODIUM 500 MG ER TABLET PO SCH (08:12)
[2019-12-03] MEDS: DOCUSATE SODIUM 100 MG CAPSULE PO SCH (08:13)
[2019-12-03] MEDS: FLUoxetine HCL 20 MG CAPSULE PO SCH (08:13)
[2019-12-03] MEDS: LORATADINE/PSEUDOEPHED SULF 5-120 MG SR TABLET PO SCH (08:13)
[2019-12-03] MEDS: OLANZapine 10 MG TABLET PO SCH (08:14)
== END 2019-12-03 19:30 | DRG 885 ==
LOC: EMS 01:54 → 6S 02:16
PROVIDERS: ADMIT Internal Medicine; ATTEND Internal Medicine
DX: F20.9 Schizophrenia, unspecified (principal); R45.851 Suicidal ideations; J06.9 Acute upper respiratory infection, unspecified; F41.9 Anxiety disorder, unspecified
CPT/HCPCS: 90715; G0480

== ENCOUNTER 2019-12-20 10:11 | Inpatient (IN) | payer OTHER ==
[~2019-12-20] VITALS: Ht 180.3 cm; Wt 86.8 kg
[2019-12-20] MEDS ORDERED: ACETAMINOPHEN 325 MG TABLET PO PRN (11:00)
[2019-12-20 11:05] LABS: BASOPHILS % (AUTO) 0.2 % (0.0-2.0); EOSINOPHILS % (AUTO) 0.1 % (1.0-6.0); HEMATOCRIT 40.8 % (41-53); HEMOGLOBIN 13.8 g/dL (13.5-17.5); LYMPHOCYTES # (AUTO) 1.2 K/uL (1.0-4.8); LYMPHOCYTES % (AUTO) 16.7 % (22.0-44.0); MEAN CORPUSCULAR HEMOGLOBIN 30.7 pg (26.0-34.0); MEAN CORPUSCULAR HGB CONC 33.8 G/dL (31.0-37.0); MEAN CORPUSCULAR VOLUME 91 fL (80-100); MONOCYTES # (AUTO) 0.4 K/uL (0.1-1.0); MONOCYTES % (AUTO) 5.9 % (2.0-9.0); NEUTROPHILS # (AUTO) 5.7 K/uL (1.8-7.7); NEUTROPHILS % (AUTO) 77.1 % (40.0-70.0); PLATELET COUNT (AUTO) 172 K/uL (150-450); RED CELL DISTRIBUTION WIDTH 13.8 % (11.5-14.5)
[2019-12-20 11:28] LABS: ANION GAP 7 mmol/L (8-16); CALCIUM, TOTAL 9.4 mg/dL (8.8-10.5); CARBON DIOXIDE 28 mmol/L (22-29); CHLORIDE 104 mmol/L (98-107); CREATININE 0.92 mg/dL (0.60-1.30); GLOMERULAR FILTR. RATE CALC > 60 mL/min (>60); GLUCOSE,RANDOM 109 mg/dL (70-110); POTASSIUM 3.9 mmol/L (3.5-5.1); SODIUM SERUM 139 mmol/L (136-145); UREA NITROGEN, BLOOD 6 mg/dL (7-18)
[2019-12-20 11:34] LABS: ALANINE AMINOTRANSFERASE 55 U/L (12-78); ALBUMIN 3.9 g/dL (3.4-5.0); ALKALINE PHOSPHATASE 46 U/L (46-116); ASPARTATE AMINOTRANSFERASE 57 U/L (15-37); BILIRUBIN,TOTAL 0.2 mg/dL (0.1-1.0); TOTAL PROTEIN, SERUM 7.7 g/dL (6.4-8.2); VALPROIC ACID 68 mcg/mL (50-100)
[2019-12-20 11:42] VITALS: BP 126/73
[2019-12-20 15:33] VITALS: BP 116/69
[2019-12-20] MEDS: FLUoxetine HCL 20 MG CAPSULE PO SCH (16:53)
[2019-12-20] MEDS: BusPIRone HCL 15 MG TABLET PO SCH (20:21)
[2019-12-20] MEDS: BENZTROPINE MESYLATE 1 MG TABLET PO SCH (20:21)
[2019-12-20] MEDS: OLANZapine 10 MG TABLET PO SCH (20:21)
[2019-12-20] MEDS: DIVALPROEX SODIUM 500 MG DR TABLET PO SCH (20:21)
[2019-12-21] MEDS ORDERED: 0.9% SODIUM CHLORIDE 10 ML SYRINGE IVP PRN (03:45)
[2019-12-21] MEDS ORDERED: OxyCODONE HCL/ACETAMINOPHEN 5-325 MG TABLET PO PRN ×2 (03:45)
[2019-12-21] MEDS ORDERED: ONDANSETRON HCL 4 MG/2 ML VIAL IVP PRN (03:45)
[2019-12-21 03:48] VITALS: BP 112/77
[2019-12-21 07:45] VITALS: BP 104/73
[2019-12-21] MEDS: FLUoxetine HCL 20 MG CAPSULE PO SCH ×2 (09:00→09:14)
[2019-12-21] MEDS ORDERED: BusPIRone HCL 15 MG TABLET PO SCH (09:00)
[2019-12-21] MEDS: DIVALPROEX SODIUM 500 MG DR TABLET PO SCH ×2 (09:14→19:58)
[2019-12-21] MEDS: DOCUSATE SODIUM 100 MG CAPSULE PO SCH ×2 (09:14→19:58)
[2019-12-21] MEDS: BusPIRone HCL 15 MG TABLET PO SCH ×2 (09:14→19:58)
[2019-12-21] MEDS: RisperiDONE 4 MG TABLET PO SCH ×2 (09:14→19:59)
[2019-12-21] MEDS: BENZTROPINE MESYLATE 1 MG TABLET PO SCH ×3 (09:14→20:01)
[2019-12-21] MEDS: OLANZapine 10 MG TABLET PO SCH ×2 (09:14→19:58)
[2019-12-21 15:20] VITALS: BP 128/75
[2019-12-21] MEDS: FLUTICASONE PROPIONATE 50 MCG/SPRAY 16 GM NASAL SPRAY NASAL SCH (20:16)
[2019-12-21 20:47] VITALS: BP 118/85
[2019-12-21] MEDS ORDERED: DIVALPROEX SODIUM 500 MG ER TABLET PO SCH (21:00)
[2019-12-22 05:11] VITALS: BP 109/66
[2019-12-22 07:12] LABS: BASOPHILS % (AUTO) 0.3 % (0.0-2.0); EOSINOPHILS % (AUTO) 2.6 % (1.0-6.0); HEMATOCRIT 41.3 % (41-53); HEMOGLOBIN 14.1 g/dL (13.5-17.5); LYMPHOCYTES % (AUTO) 55.7 % (22.0-44.0); MEAN CORPUSCULAR HEMOGLOBIN 31.1 pg (26.0-34.0); MEAN CORPUSCULAR HGB CONC 34.2 G/dL (31.0-37.0); MEAN CORPUSCULAR VOLUME 91 fL (80-100); MONOCYTES # (AUTO) 0.5 K/uL (0.1-1.0); NEUTROPHILS # (AUTO) 1.7 K/uL (1.8-7.7); NEUTROPHILS % (AUTO) 32.4 % (40.0-70.0); PLATELET COUNT (AUTO) 172 K/uL (150-450); RED BLOOD CELL COUNT(AUTO) 4.55 MIL/uL (4.50-5.90); RED CELL DISTRIBUTION WIDTH 13.8 % (11.5-14.5)
[2019-12-22 07:20] LABS: ANION GAP 9 mmol/L (8-16); CALCIUM, TOTAL 8.6 mg/dL (8.8-10.5); CARBON DIOXIDE 27 mmol/L (22-29); CHLORIDE 102 mmol/L (98-107); CREATININE 0.72 mg/dL (0.60-1.30); GLOMERULAR FILTR. RATE CALC > 60 mL/min (>60); GLUCOSE,RANDOM 94 mg/dL (70-110); POTASSIUM 3.6 mmol/L (3.5-5.1); SODIUM SERUM 138 mmol/L (136-145); UREA NITROGEN, BLOOD 9 mg/dL (7-18)
[2019-12-22 07:25] VITALS: BP 116/76
[2019-12-22 07:56] VITALS: BP 122/72
[2019-12-22] MEDS: DOCUSATE SODIUM 100 MG CAPSULE PO SCH ×2 (08:03→19:57)
[2019-12-22] MEDS: BusPIRone HCL 15 MG TABLET PO SCH ×2 (08:03→19:57)
[2019-12-22] MEDS: OLANZapine 10 MG TABLET PO SCH ×2 (08:04→19:57)
[2019-12-22] MEDS: BENZTROPINE MESYLATE 1 MG TABLET PO SCH ×3 (08:04→20:00)
[2019-12-22] MEDS: DIVALPROEX SODIUM 500 MG DR TABLET PO SCH ×2 (08:04→19:57)
[2019-12-22] MEDS: FLUoxetine HCL 20 MG CAPSULE PO SCH ×2 (08:04→08:05)
[2019-12-22] MEDS: RisperiDONE 4 MG TABLET PO SCH ×2 (08:04→19:57)
[2019-12-22 15:53] VITALS: BP 93/54
[2019-12-22 19:44] VITALS: BP 103/58
[2019-12-22] MEDS: FLUTICASONE PROPIONATE 50 MCG/SPRAY 16 GM NASAL SPRAY NASAL SCH (19:57)
[2019-12-23 04:00] VITALS: BP 116/59
[2019-12-23 08:06] VITALS: BP 114/74
[2019-12-23] MEDS: OLANZapine 10 MG TABLET PO SCH ×2 (08:26→21:53)
[2019-12-23] MEDS: DOCUSATE SODIUM 100 MG CAPSULE PO SCH ×2 (08:26→21:52)
[2019-12-23] MEDS: RisperiDONE 4 MG TABLET PO SCH ×2 (08:26→21:53)
[2019-12-23] MEDS: DIVALPROEX SODIUM 500 MG DR TABLET PO SCH ×2 (08:26→21:53)
[2019-12-23] MEDS: BusPIRone HCL 15 MG TABLET PO SCH ×2 (08:27→21:53)
[2019-12-23] MEDS: BENZTROPINE MESYLATE 1 MG TABLET PO SCH ×3 (08:27→21:53)
[2019-12-23] MEDS: FLUoxetine HCL 20 MG CAPSULE PO SCH (09:35)
[2019-12-23 17:15] VITALS: BP 111/63
[2019-12-23 20:00] VITALS: BP 113/77
[2019-12-23] MEDS: FLUTICASONE PROPIONATE 50 MCG/SPRAY 16 GM NASAL SPRAY NASAL SCH (21:00)
[2019-12-24 04:15] VITALS: BP 100/67
[2019-12-24 08:00] VITALS: BP 120/67
[2019-12-24] MEDS: BusPIRone HCL 15 MG TABLET PO SCH ×2 (08:20→21:14)
[2019-12-24] MEDS: DIVALPROEX SODIUM 500 MG DR TABLET PO SCH ×2 (08:20→21:13)
[2019-12-24] MEDS: RisperiDONE 4 MG TABLET PO SCH ×2 (08:20→21:13)
[2019-12-24] MEDS: FLUoxetine HCL 20 MG CAPSULE PO SCH (08:20)
[2019-12-24] MEDS: BENZTROPINE MESYLATE 1 MG TABLET PO SCH ×3 (08:20→21:14)
[2019-12-24] MEDS: OLANZapine 10 MG TABLET PO SCH ×2 (08:20→21:14)
[2019-12-24] MEDS: DOCUSATE SODIUM 100 MG CAPSULE PO SCH ×2 (08:21→21:14)
[2019-12-24 16:07] VITALS: BP 102/66
[2019-12-24 19:53] VITALS: BP 133/65
[2019-12-24] MEDS: FLUTICASONE PROPIONATE 50 MCG/SPRAY 16 GM NASAL SPRAY NASAL SCH (21:16)
[2019-12-25 04:00] VITALS: BP 128/74
[2019-12-25 08:28] VITALS: BP 122/73
[2019-12-25] MEDS: DIVALPROEX SODIUM 500 MG DR TABLET PO SCH ×2 (08:41→20:54)
[2019-12-25] MEDS: FLUoxetine HCL 20 MG CAPSULE PO SCH (08:41)
[2019-12-25] MEDS: OLANZapine 10 MG TABLET PO SCH ×2 (08:41→20:54)
[2019-12-25] MEDS: BusPIRone HCL 15 MG TABLET PO SCH ×2 (08:41→20:53)
[2019-12-25] MEDS: BENZTROPINE MESYLATE 1 MG TABLET PO SCH ×2 (08:42→20:53)
[2019-12-25] MEDS: RisperiDONE 4 MG TABLET PO SCH ×2 (08:42→20:54)
[2019-12-25] MEDS: DOCUSATE SODIUM 100 MG CAPSULE PO SCH ×2 (08:42→20:53)
[2019-12-25 17:41] VITALS: BP 105/57
[2019-12-25 19:47] VITALS: BP 108/57
[2019-12-25] MEDS: FLUTICASONE PROPIONATE 50 MCG/SPRAY 16 GM NASAL SPRAY NASAL SCH (20:53)
[2019-12-26 04:09] VITALS: BP 115/69
[2019-12-26 08:09] VITALS: BP 117/60
[2019-12-26] MEDS: OLANZapine 10 MG TABLET PO SCH ×2 (09:09→20:50)
[2019-12-26] MEDS: FLUoxetine HCL 20 MG CAPSULE PO SCH (09:10)
[2019-12-26] MEDS: BusPIRone HCL 15 MG TABLET PO SCH ×2 (09:10→20:49)
[2019-12-26] MEDS: DOCUSATE SODIUM 100 MG CAPSULE PO SCH ×2 (09:11→20:49)
[2019-12-26] MEDS: BENZTROPINE MESYLATE 1 MG TABLET PO SCH ×2 (09:11→20:49)
[2019-12-26] MEDS: RisperiDONE 4 MG TABLET PO SCH ×2 (09:11→20:50)
[2019-12-26] MEDS: DIVALPROEX SODIUM 500 MG DR TABLET PO SCH ×2 (09:11→20:50)
[2019-12-26 15:41] VITALS: BP 116/62
[2019-12-26 19:30] VITALS: BP 115/54
[2019-12-26] MEDS: FLUTICASONE PROPIONATE 50 MCG/SPRAY 16 GM NASAL SPRAY NASAL SCH (20:49)
[2019-12-27 04:38] VITALS: BP 103/69
[2019-12-27] MEDS: RisperiDONE 4 MG TABLET PO SCH ×2 (07:48→19:53)
[2019-12-27] MEDS: BusPIRone HCL 15 MG TABLET PO SCH ×2 (07:48→19:53)
[2019-12-27] MEDS: OLANZapine 10 MG TABLET PO SCH ×2 (07:48→19:53)
[2019-12-27] MEDS: DIVALPROEX SODIUM 500 MG DR TABLET PO SCH ×2 (07:48→19:53)
[2019-12-27] MEDS: BENZTROPINE MESYLATE 1 MG TABLET PO SCH ×2 (07:48→19:53)
[2019-12-27] MEDS: DOCUSATE SODIUM 100 MG CAPSULE PO SCH ×2 (07:48→19:53)
[2019-12-27] MEDS: FLUoxetine HCL 20 MG CAPSULE PO SCH (07:48)
[2019-12-27 19:35] VITALS: BP 107/63
[2019-12-27] MEDS: FLUTICASONE PROPIONATE 50 MCG/SPRAY 16 GM NASAL SPRAY NASAL SCH (19:54)
[2019-12-28 04:44] VITALS: BP 121/74
[2019-12-28 07:54] VITALS: BP 121/70
[2019-12-28] MEDS: DIVALPROEX SODIUM 500 MG DR TABLET PO SCH ×2 (08:47→19:44)
[2019-12-28] MEDS: RisperiDONE 4 MG TABLET PO SCH ×2 (08:47→19:44)
[2019-12-28] MEDS: DOCUSATE SODIUM 100 MG CAPSULE PO SCH ×2 (08:47→19:44)
[2019-12-28] MEDS: BENZTROPINE MESYLATE 1 MG TABLET PO SCH ×2 (08:47→19:44)
[2019-12-28] MEDS: FLUoxetine HCL 20 MG CAPSULE PO SCH (08:47)
[2019-12-28] MEDS: OLANZapine 10 MG TABLET PO SCH ×2 (08:47→19:44)
[2019-12-28] MEDS: BusPIRone HCL 15 MG TABLET PO SCH ×2 (08:47→19:44)
[2019-12-28 15:24] VITALS: BP 98/64
[2019-12-28] MEDS: FLUTICASONE PROPIONATE 50 MCG/SPRAY 16 GM NASAL SPRAY NASAL SCH (19:44)
[2019-12-28 20:29] VITALS: BP 112/61
[2019-12-29 05:32] VITALS: BP 129/64
[2019-12-29 07:40] VITALS: BP 112/68
[2019-12-29] MEDS: DOCUSATE SODIUM 100 MG CAPSULE PO SCH ×2 (08:37→19:46)
[2019-12-29] MEDS: BusPIRone HCL 15 MG TABLET PO SCH ×2 (08:37→19:46)
[2019-12-29] MEDS: BENZTROPINE MESYLATE 1 MG TABLET PO SCH ×2 (08:37→19:46)
[2019-12-29] MEDS: OLANZapine 10 MG TABLET PO SCH ×2 (08:38→19:45)
[2019-12-29] MEDS: RisperiDONE 4 MG TABLET PO SCH ×2 (08:38→19:46)
[2019-12-29] MEDS: FLUoxetine HCL 20 MG CAPSULE PO SCH (08:38)
[2019-12-29] MEDS: DIVALPROEX SODIUM 500 MG DR TABLET PO SCH ×2 (08:38→19:46)
[2019-12-29 14:57] VITALS: BP 124/72
[2019-12-29 19:42] VITALS: BP 119/65
[2019-12-29] MEDS: FLUTICASONE PROPIONATE 50 MCG/SPRAY 16 GM NASAL SPRAY NASAL SCH (19:46)
[2019-12-30 05:24] VITALS: BP 117/69
[2019-12-30 07:17] VITALS: BP 126/70
[2019-12-30] MEDS: BENZTROPINE MESYLATE 1 MG TABLET PO SCH ×2 (08:35→20:06)
[2019-12-30] MEDS: DIVALPROEX SODIUM 500 MG DR TABLET PO SCH ×2 (08:35→20:06)
[2019-12-30] MEDS: BusPIRone HCL 15 MG TABLET PO SCH ×2 (08:35→20:06)
[2019-12-30] MEDS: FLUoxetine HCL 20 MG CAPSULE PO SCH (08:36)
[2019-12-30] MEDS: DOCUSATE SODIUM 100 MG CAPSULE PO SCH ×2 (08:37→20:06)
[2019-12-30] MEDS: OLANZapine 10 MG TABLET PO SCH ×2 (08:37→20:06)
[2019-12-30] MEDS: RisperiDONE 4 MG TABLET PO SCH ×2 (08:37→20:06)
[2019-12-30 15:52] VITALS: BP 119/60
[2019-12-30] MEDS: FLUTICASONE PROPIONATE 50 MCG/SPRAY 16 GM NASAL SPRAY NASAL SCH (20:06)
[2019-12-30 20:12] VITALS: BP 107/60
[2019-12-31 04:48] VITALS: BP 103/74
[2019-12-31 07:30] VITALS: BP 116/73
[2019-12-31] MEDS: FLUoxetine HCL 20 MG CAPSULE PO SCH (08:43)
[2019-12-31] MEDS: OLANZapine 10 MG TABLET PO SCH ×2 (08:43→22:09)
[2019-12-31] MEDS: RisperiDONE 4 MG TABLET PO SCH ×2 (08:43→22:09)
[2019-12-31] MEDS: DOCUSATE SODIUM 100 MG CAPSULE PO SCH ×2 (08:43→22:10)
[2019-12-31] MEDS: BENZTROPINE MESYLATE 1 MG TABLET PO SCH ×2 (08:43→22:10)
[2019-12-31] MEDS: DIVALPROEX SODIUM 500 MG DR TABLET PO SCH ×2 (08:43→22:10)
[2019-12-31] MEDS: BusPIRone HCL 15 MG TABLET PO SCH ×2 (08:43→22:09)
[2019-12-31 15:25] VITALS: BP 110/63
[2019-12-31 19:34] VITALS: BP 101/52
[2019-12-31] MEDS: FLUTICASONE PROPIONATE 50 MCG/SPRAY 16 GM NASAL SPRAY NASAL SCH (21:00)
[2020-01-01 03:29] VITALS: BP 108/69
[2020-01-01] MEDS: DOCUSATE SODIUM 100 MG CAPSULE PO SCH ×2 (08:11→20:31)
[2020-01-01] MEDS: FLUoxetine HCL 20 MG CAPSULE PO SCH (08:12)
[2020-01-01] MEDS: OLANZapine 10 MG TABLET PO SCH ×2 (08:12→20:31)
[2020-01-01] MEDS: BusPIRone HCL 15 MG TABLET PO SCH ×2 (08:12→20:31)
[2020-01-01] MEDS: RisperiDONE 4 MG TABLET PO SCH ×2 (08:12→20:31)
[2020-01-01] MEDS: DIVALPROEX SODIUM 500 MG DR TABLET PO SCH ×2 (08:12→20:31)
[2020-01-01] MEDS: BENZTROPINE MESYLATE 1 MG TABLET PO SCH ×2 (08:12→20:31)
[2020-01-01 08:20] VITALS: BP 116/71
[2020-01-01 15:00] VITALS: BP 103/55
[2020-01-01 19:38] VITALS: BP 102/54
[2020-01-02 05:15] VITALS: BP 105/65
[2020-01-02 07:51] VITALS: BP 118/80
[2020-01-02] MEDS: DIVALPROEX SODIUM 500 MG DR TABLET PO SCH ×2 (08:04→20:41)
[2020-01-02] MEDS: FLUoxetine HCL 20 MG CAPSULE PO SCH (08:04)
[2020-01-02] MEDS: BENZTROPINE MESYLATE 1 MG TABLET PO SCH ×2 (08:04→20:41)
[2020-01-02] MEDS: BusPIRone HCL 15 MG TABLET PO SCH ×2 (08:05→20:41)
[2020-01-02] MEDS: DOCUSATE SODIUM 100 MG CAPSULE PO SCH ×2 (08:05→20:41)
[2020-01-02] MEDS: RisperiDONE 4 MG TABLET PO SCH ×2 (08:05→20:41)
[2020-01-02] MEDS: OLANZapine 10 MG TABLET PO SCH ×2 (08:05→20:41)
[2020-01-02 16:33] VITALS: BP 116/69
[2020-01-03 04:46] VITALS: BP 115/73
[2020-01-03 07:45] VITALS: BP 114/64
[2020-01-03] MEDS: DOCUSATE SODIUM 100 MG CAPSULE PO SCH ×2 (08:11→20:27)
[2020-01-03] MEDS: DIVALPROEX SODIUM 500 MG DR TABLET PO SCH ×2 (08:12→20:27)
[2020-01-03] MEDS: BENZTROPINE MESYLATE 1 MG TABLET PO SCH ×2 (08:12→20:27)
[2020-01-03] MEDS: FLUoxetine HCL 20 MG CAPSULE PO SCH (08:12)
[2020-01-03] MEDS: RisperiDONE 4 MG TABLET PO SCH ×2 (08:12→20:28)
[2020-01-03] MEDS: OLANZapine 10 MG TABLET PO SCH ×2 (08:12→20:27)
[2020-01-03] MEDS: BusPIRone HCL 15 MG TABLET PO SCH ×2 (08:12→20:27)
[2020-01-03 16:17] VITALS: BP 112/64
[2020-01-03 20:28] VITALS: BP 109/59
[2020-01-03] MEDS: FLUTICASONE PROPIONATE 50 MCG/SPRAY 16 GM NASAL SPRAY NASAL SCH (20:28)
[2020-01-04 04:26] VITALS: BP 114/71
[2020-01-04 07:23] VITALS: BP 116/76
[2020-01-04] MEDS: DIVALPROEX SODIUM 500 MG DR TABLET PO SCH ×2 (08:23→20:09)
[2020-01-04] MEDS: BENZTROPINE MESYLATE 1 MG TABLET PO SCH ×2 (08:24→20:09)
[2020-01-04] MEDS: OLANZapine 10 MG TABLET PO SCH ×2 (08:24→20:09)
[2020-01-04] MEDS: RisperiDONE 4 MG TABLET PO SCH ×2 (08:24→20:09)
[2020-01-04] MEDS: DOCUSATE SODIUM 100 MG CAPSULE PO SCH ×2 (08:24→20:09)
[2020-01-04] MEDS: BusPIRone HCL 15 MG TABLET PO SCH ×2 (08:24→20:09)
[2020-01-04] MEDS: FLUoxetine HCL 20 MG CAPSULE PO SCH (08:24)
[2020-01-04 16:47] VITALS: BP 115/60
[2020-01-04] MEDS: FLUTICASONE PROPIONATE 50 MCG/SPRAY 16 GM NASAL SPRAY NASAL SCH (20:10)
[2020-01-04 20:45] VITALS: BP 122/68
[2020-01-05 04:58] VITALS: BP 118/64
[2020-01-05 07:36] VITALS: BP 122/82
[2020-01-05] MEDS: OLANZapine 10 MG TABLET PO SCH ×2 (07:58→20:46)
[2020-01-05] MEDS: DOCUSATE SODIUM 100 MG CAPSULE PO SCH ×2 (07:59→20:46)
[2020-01-05] MEDS: BusPIRone HCL 15 MG TABLET PO SCH ×2 (07:59→20:46)
[2020-01-05] MEDS: RisperiDONE 4 MG TABLET PO SCH ×2 (07:59→20:46)
[2020-01-05] MEDS: FLUoxetine HCL 20 MG CAPSULE PO SCH (07:59)
[2020-01-05] MEDS: BENZTROPINE MESYLATE 1 MG TABLET PO SCH ×2 (07:59→20:46)
[2020-01-05] MEDS: DIVALPROEX SODIUM 500 MG DR TABLET PO SCH ×2 (07:59→20:46)
[2020-01-05 15:43] VITALS: BP 108/70
[2020-01-05 20:00] VITALS: BP 109/70
[2020-01-05] MEDS: FLUTICASONE PROPIONATE 50 MCG/SPRAY 16 GM NASAL SPRAY NASAL SCH (20:46)
[2020-01-06 04:00] VITALS: BP 111/67
[2020-01-06] MEDS: DOCUSATE SODIUM 100 MG CAPSULE PO SCH ×2 (07:52→20:16)
[2020-01-06] MEDS: FLUoxetine HCL 20 MG CAPSULE PO SCH (07:52)
[2020-01-06] MEDS: DIVALPROEX SODIUM 500 MG DR TABLET PO SCH ×2 (07:52→20:16)
[2020-01-06] MEDS: OLANZapine 10 MG TABLET PO SCH ×2 (07:52→20:16)
[2020-01-06] MEDS: RisperiDONE 4 MG TABLET PO SCH ×2 (07:52→20:16)
[2020-01-06] MEDS: BusPIRone HCL 15 MG TABLET PO SCH ×2 (07:52→20:16)
[2020-01-06] MEDS: BENZTROPINE MESYLATE 1 MG TABLET PO SCH ×2 (07:52→20:16)
[2020-01-06 08:15] VITALS: BP 112/72
[2020-01-06 15:20] VITALS: BP 110/68
[2020-01-06 19:45] VITALS: BP 118/70
[2020-01-06] MEDS: FLUTICASONE PROPIONATE 50 MCG/SPRAY 16 GM NASAL SPRAY NASAL SCH (20:16)
[2020-01-07 04:30] VITALS: BP 124/67
[2020-01-07 08:05] VITALS: BP 106/70
[2020-01-07] MEDS: DOCUSATE SODIUM 100 MG CAPSULE PO SCH ×2 (08:07→20:32)
[2020-01-07] MEDS: DIVALPROEX SODIUM 500 MG DR TABLET PO SCH ×2 (08:07→20:32)
[2020-01-07] MEDS: OLANZapine 10 MG TABLET PO SCH ×2 (08:07→20:32)
[2020-01-07] MEDS: RisperiDONE 4 MG TABLET PO SCH ×2 (08:07→20:32)
[2020-01-07] MEDS: BusPIRone HCL 15 MG TABLET PO SCH ×2 (08:07→20:32)
[2020-01-07] MEDS: FLUoxetine HCL 20 MG CAPSULE PO SCH (08:07)
[2020-01-07] MEDS: BENZTROPINE MESYLATE 1 MG TABLET PO SCH ×2 (08:07→20:32)
[2020-01-07 13:42] VITALS: BP 115/72
[2020-01-07 15:44] VITALS: BP 108/60
[2020-01-07] MEDS: FLUTICASONE PROPIONATE 50 MCG/SPRAY 16 GM NASAL SPRAY NASAL SCH (20:33)
[2020-01-07 20:43] VITALS: BP 116/77
[2020-01-08 05:15] VITALS: BP 106/70
[2020-01-08 08:12] VITALS: BP 113/82
[2020-01-08] MEDS: OLANZapine 10 MG TABLET PO SCH (09:14)
[2020-01-08] MEDS: FLUoxetine HCL 20 MG CAPSULE PO SCH (09:14)
[2020-01-08] MEDS: RisperiDONE 4 MG TABLET PO SCH (09:14)
[2020-01-08] MEDS: BusPIRone HCL 15 MG TABLET PO SCH (09:14)
[2020-01-08] MEDS: DOCUSATE SODIUM 100 MG CAPSULE PO SCH (09:14)
[2020-01-08] MEDS: DIVALPROEX SODIUM 500 MG DR TABLET PO SCH (09:14)
[2020-01-08] MEDS: BENZTROPINE MESYLATE 1 MG TABLET PO SCH (09:14)
[2020-01-08] MEDS ORDERED: BENZ1TAB10 PO (12:26)
[2020-01-08] MEDS ORDERED: FLUT16H NASAL (12:27)
[2020-01-08] MEDS ORDERED: DIVA125SP PO (12:27)
[2020-01-08] MEDS ORDERED: BUSP15 PO (12:36)
[2020-01-08] MEDS ORDERED: OLAN10TA3 PO (12:37)
== END 2020-01-08 14:34 | DRG 885 ==
LOC: EMS 10:13 → 6S 11:01
PROVIDERS: ADMIT Hospitalist; ATTEND Hospitalist
DX: F20.9 Schizophrenia, unspecified (principal); R45.851 Suicidal ideations; Z79.899 Other long term (current) drug therapy
CPT/HCPCS: G0480

== ENCOUNTER 2020-01-29 15:38 | Inpatient (IN) | payer OTHER ==
[~2020-01-29] VITALS: Ht 175.3 cm; Wt 85.1 kg
[~2020-01-29 15:38] MED LIST changes: +DIVA125SP PO; +FLUT16H NASAL; -IBUP-2071 PO; +OLAN10TA3 PO
[2020-01-29 17:18] LABS: EOSINOPHILS % (AUTO) 0.1 % (1.0-6.0); HEMATOCRIT 39.5 % (41-53); HEMOGLOBIN 13.3 g/dL (13.5-17.5); LYMPHOCYTES # (AUTO) 1.4 K/uL (1.0-4.8); LYMPHOCYTES % (AUTO) 22.7 % (22.0-44.0); MEAN CORPUSCULAR HEMOGLOBIN 30.7 pg (26.0-34.0); MEAN CORPUSCULAR HGB CONC 33.6 G/dL (31.0-37.0); MEAN CORPUSCULAR VOLUME 92 fL (80-100); MONOCYTES # (AUTO) 0.6 K/uL (0.1-1.0); MONOCYTES % (AUTO) 9.9 % (2.0-9.0); NEUTROPHILS # (AUTO) 4.2 K/uL (1.8-7.7); NEUTROPHILS % (AUTO) 67.3 % (40.0-70.0); PLATELET COUNT (AUTO) 201 K/uL (150-450); RED BLOOD CELL COUNT(AUTO) 4.31 MIL/uL (4.50-5.90); RED CELL DISTRIBUTION WIDTH 13.5 % (11.5-14.5)
[2020-01-29 17:35] LABS: ANION GAP 10 mmol/L (8-16); CARBON DIOXIDE 28 mmol/L (22-29); CHLORIDE 104 mmol/L (98-107); CREATININE 0.92 mg/dL (0.60-1.30); GLOMERULAR FILTR. RATE CALC > 60 mL/min (>60); GLUCOSE,RANDOM 103 mg/dL (70-110); POTASSIUM 4.3 mmol/L (3.5-5.1); SODIUM SERUM 142 mmol/L (136-145); UREA NITROGEN, BLOOD 8 mg/dL (7-18)
[2020-01-29 17:37] LABS: ALANINE AMINOTRANSFERASE 22 U/L (12-78); ALBUMIN 3.6 g/dL (3.4-5.0); ALKALINE PHOSPHATASE 48 U/L (46-116); ASPARTATE AMINOTRANSFERASE 12 U/L (15-37); BILIRUBIN,TOTAL 0.2 mg/dL (0.1-1.0); LIPASE 64 U/L (73-393); TOTAL PROTEIN, SERUM 7.8 g/dL (6.4-8.2)
[2020-01-29] MEDS ORDERED: LEVOFLOXACIN 750 MG/D5% WATER 150 ML IV ONE (18:00)
[2020-01-29] MEDS ORDERED: DIVA-78 PO (18:05)
[2020-01-29] MEDS ORDERED: 0.9% SODIUM CHLORIDE 10 ML SYRINGE IVP PRN (18:15)
[2020-01-29] MEDS ORDERED: ONDANSETRON HCL 4 MG/2 ML VIAL IVP PRN ×2 (18:15→23:30)
[2020-01-29] MEDS: ACETAMINOPHEN 325 MG TABLET PO PRN ×2 (20:09→22:47)
[2020-01-29 20:19] LABS: AMPHET/METH SCREEN,URINE NEGATIVE (NEGATIVE); BARBITURATE SCREEN, URINE NEGATIVE (NEGATIVE); BENZODIAZEPINES SCREEN,URINE NEGATIVE (NEGATIVE); CANNABINOID SCREEN,URINE NEGATIVE (NEGATIVE); COCAINE SCREEN,URINE NEGATIVE (NEGATIVE); METHADONE SCREEN, URINE NEGATIVE (NEGATIVE); OPIATE SCREEN,URINE NEGATIVE (NEGATIVE)
[2020-01-29 20:21] LABS: PHENCYCLIDINE SCREEN,URINE NEGATIVE (NEGATIVE)
[2020-01-29 22:09] VITALS: BP 116/72
[2020-01-29] MEDS ORDERED: OxyCODONE HCL/ACETAMINOPHEN 5-325 MG TABLET PO PRN ×2 (23:30)
[2020-01-30 00:12] VITALS: BP 102/63
[2020-01-30] MEDS ORDERED: SODIUM CHLORIDE 0.9% 250 ML IV ONE (00:17)
[2020-01-30] MEDS: CefTRIAXone 1 GM/DEXTROSE 50 ML IV SCH (00:36)
[2020-01-30] MEDS: DOCUSATE SODIUM 100 MG CAPSULE PO SCH ×3 (00:36→21:23)
[2020-01-30] MEDS: AZITHROMYCIN 500 MG/NS 250 ML IV SCH (01:49)
[2020-01-30 04:55] VITALS: BP 109/75
[2020-01-30] MEDS ORDERED: PNEUMOCOCCAL VACCINE POLYVALENT 0.5 ML VIAL [PPSV23] IM ONE (06:15)
[2020-01-30 06:30] LABS: BASOPHILS % (AUTO) 1.1 % (0.0-2.0); EOSINOPHILS % (AUTO) 2.4 % (1.0-6.0); HEMATOCRIT 39.3 % (41-53); HEMOGLOBIN 13.4 g/dL (13.5-17.5); LYMPHOCYTES # (AUTO) 1.9 K/uL (1.0-4.8); MEAN CORPUSCULAR HEMOGLOBIN 31.4 pg (26.0-34.0); MEAN CORPUSCULAR VOLUME 92 fL (80-100); MONOCYTES # (AUTO) 0.6 K/uL (0.1-1.0); MONOCYTES % (AUTO) 13.1 % (2.0-9.0); NEUTROPHILS % (AUTO) 43.4 % (40.0-70.0); PLATELET COUNT (AUTO) 198 K/uL (150-450); RED BLOOD CELL COUNT(AUTO) 4.25 MIL/uL (4.50-5.90); RED CELL DISTRIBUTION WIDTH 13.3 % (11.5-14.5)
[2020-01-30 06:49] LABS: ANION GAP 7 mmol/L (8-16); CALCIUM, TOTAL 8.2 mg/dL (8.8-10.5); CARBON DIOXIDE 28 mmol/L (22-29); CHLORIDE 105 mmol/L (98-107); CREATININE 0.88 mg/dL (0.60-1.30); GLOMERULAR FILTR. RATE CALC > 60 mL/min (>60); GLUCOSE,RANDOM 93 mg/dL (70-110); POTASSIUM 3.8 mmol/L (3.5-5.1); SODIUM SERUM 140 mmol/L (136-145); UREA NITROGEN, BLOOD 9 mg/dL (7-18)
[2020-01-30 09:30] VITALS: BP 90/52
[2020-01-30] MEDS: ZINC SULFATE 220 MG CAPSULE PO SCH (09:30)
[2020-01-30] MEDS: FAMOTIDINE 10 MG/ML 2 ML VIAL IVP SCH (09:31)
[2020-01-30 12:01] VITALS: BP 102/58
[2020-01-30 16:07] VITALS: BP 119/64
[2020-01-30 19:59] VITALS: BP 111/60
[2020-01-30] MEDS: BusPIRone HCL 15 MG TABLET PO SCH (21:22)
[2020-01-30] MEDS: DIVALPROEX SODIUM 500 MG DR TABLET PO SCH (21:22)
[2020-01-30] MEDS: OLANZapine 10 MG TABLET PO SCH (21:22)
[2020-01-30] MEDS: BENZTROPINE MESYLATE 1 MG TABLET PO SCH (21:23)
[2020-01-31] MEDS: CefTRIAXone 1 GM/DEXTROSE 50 ML IV SCH (00:19)
[2020-01-31 00:25] VITALS: BP 101/57
[2020-01-31] MEDS: 0.9% SODIUM CHLORIDE 10 ML SYRINGE IVP PRN (00:32)
[2020-01-31] MEDS: AZITHROMYCIN 500 MG/NS 250 ML IV SCH (01:04)
[2020-01-31 03:36] VITALS: BP 104/61
[2020-01-31 07:56] VITALS: BP 101/61
[2020-01-31] MEDS: DOCUSATE SODIUM 100 MG CAPSULE PO SCH ×2 (08:29→21:22)
[2020-01-31] MEDS: DIVALPROEX SODIUM 500 MG DR TABLET PO SCH ×2 (08:29→21:21)
[2020-01-31] MEDS: ZINC SULFATE 220 MG CAPSULE PO SCH (08:29)
[2020-01-31] MEDS: FAMOTIDINE 10 MG/ML 2 ML VIAL IVP SCH (08:29)
[2020-01-31] MEDS: BENZTROPINE MESYLATE 1 MG TABLET PO SCH ×2 (08:29→21:21)
[2020-01-31] MEDS: BusPIRone HCL 15 MG TABLET PO SCH ×2 (08:32→21:23)
[2020-01-31 11:26] VITALS: BP 111/58
[2020-01-31 12:35] LABS: QUANTIFERON+, Nil Value 0.26 IU/mL; QUANTIFERON+,Mitogen Value >10.00 IU/mL; QUANTIFERON+,TB1 Antigen Value 1.76 IU/mL; QUANTIFERON, TB GOLD PLUS Positive (Negative)
[2020-01-31 15:58] VITALS: BP 110/65
[2020-01-31 20:22] VITALS: BP 110/67
[2020-01-31] MEDS: OLANZapine 10 MG TABLET PO SCH (22:22)
[2020-02-01] MEDS: 0.9% SODIUM CHLORIDE 10 ML SYRINGE IVP PRN (00:15)
[2020-02-01] MEDS: CefTRIAXone 1 GM/DEXTROSE 50 ML IV SCH (00:15)
[2020-02-01 00:35] VITALS: BP 92/57
[2020-02-01] MEDS: AZITHROMYCIN 500 MG/NS 250 ML IV SCH (00:44)
[2020-02-01 04:36] VITALS: BP 96/60
[2020-02-01 08:30] VITALS: BP 95/53
[2020-02-01] MEDS: FAMOTIDINE 10 MG/ML 2 ML VIAL IVP SCH (10:26)
[2020-02-01] MEDS: BENZTROPINE MESYLATE 1 MG TABLET PO SCH ×2 (10:26→20:45)
[2020-02-01] MEDS: ZINC SULFATE 220 MG CAPSULE PO SCH (10:26)
[2020-02-01] MEDS: DOCUSATE SODIUM 100 MG CAPSULE PO SCH ×2 (10:27→20:45)
[2020-02-01] MEDS: BusPIRone HCL 15 MG TABLET PO SCH ×2 (10:27→20:45)
[2020-02-01] MEDS: DIVALPROEX SODIUM 500 MG DR TABLET PO SCH ×2 (10:27→20:45)
[2020-02-01 11:55] VITALS: BP 100/51
[2020-02-01 16:00] VITALS: BP 98/68
[2020-02-01 19:40] VITALS: BP 110/67
[2020-02-01] MEDS: OLANZapine 10 MG TABLET PO SCH (20:45)
[2020-02-02] MEDS: CefTRIAXone 1 GM/DEXTROSE 50 ML IV SCH (00:18)
[2020-02-02] MEDS: AZITHROMYCIN 500 MG/NS 250 ML IV SCH (01:11)
[2020-02-02 04:35] VITALS: BP 99/64
[2020-02-02 08:00] VITALS: BP 121/51
[2020-02-02] MEDS: BusPIRone HCL 15 MG TABLET PO SCH ×2 (08:13→20:02)
[2020-02-02] MEDS: BENZTROPINE MESYLATE 1 MG TABLET PO SCH ×2 (08:14→20:02)
[2020-02-02] MEDS: ZINC SULFATE 220 MG CAPSULE PO SCH (08:14)
[2020-02-02] MEDS: FAMOTIDINE 10 MG/ML 2 ML VIAL IVP SCH (08:14)
[2020-02-02] MEDS: DIVALPROEX SODIUM 500 MG DR TABLET PO SCH ×2 (08:14→20:02)
[2020-02-02] MEDS: DOCUSATE SODIUM 100 MG CAPSULE PO SCH ×2 (08:14→20:02)
[2020-02-02 16:00] VITALS: BP 110/50
[2020-02-02 16:28] LABS: BASOPHILS % (AUTO) 0.6 % (0.0-2.0); EOSINOPHILS % (AUTO) 1.1 % (1.0-6.0); HEMOGLOBIN 14.1 g/dL (13.5-17.5); LYMPHOCYTES % (AUTO) 44.8 % (22.0-44.0); MEAN CORPUSCULAR HEMOGLOBIN 30.7 pg (26.0-34.0); MEAN CORPUSCULAR HGB CONC 33.5 G/dL (31.0-37.0); MEAN CORPUSCULAR VOLUME 92 fL (80-100); MONOCYTES # (AUTO) 0.6 K/uL (0.1-1.0); MONOCYTES % (AUTO) 9.4 % (2.0-9.0); NEUTROPHILS % (AUTO) 44.1 % (40.0-70.0); PLATELET COUNT (AUTO) 250 K/uL (150-450); RED BLOOD CELL COUNT(AUTO) 4.58 MIL/uL (4.50-5.90); RED CELL DISTRIBUTION WIDTH 13.2 % (11.5-14.5)
[2020-02-02 16:51] LABS: ANION GAP 9 mmol/L (8-16); CALCIUM, TOTAL 8.8 mg/dL (8.8-10.5); CARBON DIOXIDE 25 mmol/L (22-29); CHLORIDE 105 mmol/L (98-107); CREATININE 0.84 mg/dL (0.60-1.30); GLOMERULAR FILTR. RATE CALC > 60 mL/min (>60); GLUCOSE,RANDOM 99 mg/dL (70-110); POTASSIUM 4.2 mmol/L (3.5-5.1); SODIUM SERUM 139 mmol/L (136-145); UREA NITROGEN, BLOOD 9 mg/dL (7-18)
[2020-02-02 16:57] LABS: ALANINE AMINOTRANSFERASE 29 U/L (12-78); ALBUMIN 3.3 g/dL (3.4-5.0); ALKALINE PHOSPHATASE 45 U/L (46-116); ASPARTATE AMINOTRANSFERASE 14 U/L (15-37); BILIRUBIN,TOTAL 0.1 mg/dL (0.1-1.0); TOTAL PROTEIN, SERUM 6.8 g/dL (6.4-8.2)
[2020-02-02] MEDS: OLANZapine 10 MG TABLET PO SCH (20:03)
[2020-02-02 20:21] VITALS: BP 100/69
[2020-02-03] MEDS: CefTRIAXone 1 GM/DEXTROSE 50 ML IV SCH (00:03)
[2020-02-03 00:37] VITALS: BP 116/76
[2020-02-03] MEDS: AZITHROMYCIN 500 MG/NS 250 ML IV SCH (01:15)
[2020-02-03] MEDS ORDERED: SODIUM CHLORIDE 0.9% 500 ML IV ONE (05:30)
[2020-02-03 05:59] VITALS: BP 101/67
[2020-02-03 08:09] VITALS: BP 104/67
[2020-02-03] MEDS: BusPIRone HCL 15 MG TABLET PO SCH ×2 (08:21→21:10)
[2020-02-03] MEDS: ZINC SULFATE 220 MG CAPSULE PO SCH (08:21)
[2020-02-03] MEDS: FAMOTIDINE 10 MG/ML 2 ML VIAL IVP SCH (08:21)
[2020-02-03] MEDS: DOCUSATE SODIUM 100 MG CAPSULE PO SCH ×2 (08:21→21:11)
[2020-02-03] MEDS: DIVALPROEX SODIUM 500 MG DR TABLET PO SCH ×2 (08:21→21:11)
[2020-02-03] MEDS: BENZTROPINE MESYLATE 1 MG TABLET PO SCH ×2 (08:21→21:10)
[2020-02-03] MEDS ORDERED: SODIUM CHLORIDE 3% 15 ML NEB SOLUTION NEB ONE ×2 (13:41→15:34)
[2020-02-03 15:30] VITALS: BP 100/70
[2020-02-03 20:15] VITALS: BP 124/74
[2020-02-03] MEDS: OLANZapine 10 MG TABLET PO SCH (21:11)
[2020-02-04] MEDS: CefTRIAXone 1 GM/DEXTROSE 50 ML IV SCH ×2 (00:41→23:46)
[2020-02-04] MEDS: AZITHROMYCIN 500 MG/NS 250 ML IV SCH (00:49)
[2020-02-04 05:46] VITALS: BP 108/57
[2020-02-04 07:59] VITALS: BP 111/60
[2020-02-04] MEDS: DOCUSATE SODIUM 100 MG CAPSULE PO SCH ×2 (08:32→20:54)
[2020-02-04] MEDS: BusPIRone HCL 15 MG TABLET PO SCH ×2 (08:32→20:54)
[2020-02-04] MEDS: FAMOTIDINE 10 MG/ML 2 ML VIAL IVP SCH (08:32)
[2020-02-04] MEDS: DIVALPROEX SODIUM 500 MG DR TABLET PO SCH ×2 (08:32→20:54)
[2020-02-04] MEDS: BENZTROPINE MESYLATE 1 MG TABLET PO SCH ×2 (08:32→20:55)
[2020-02-04] MEDS: ZINC SULFATE 220 MG CAPSULE PO SCH (09:00)
[2020-02-04 15:33] VITALS: BP 101/53
[2020-02-04 16:00] VITALS: BP 105/70
[2020-02-04 20:51] VITALS: BP 113/65
[2020-02-04] MEDS: OLANZapine 10 MG TABLET PO SCH (20:54)
[2020-02-05] MEDS: AZITHROMYCIN 500 MG/NS 250 ML IV SCH (00:49)
[2020-02-05 06:03] VITALS: BP 98/56
[2020-02-05 08:28] VITALS: BP 102/60
[2020-02-05] MEDS: ZINC SULFATE 220 MG CAPSULE PO SCH (08:35)
[2020-02-05] MEDS: DOCUSATE SODIUM 100 MG CAPSULE PO SCH ×2 (09:03→20:22)
[2020-02-05] MEDS: FAMOTIDINE 10 MG/ML 2 ML VIAL IVP SCH (09:03)
[2020-02-05] MEDS: BusPIRone HCL 15 MG TABLET PO SCH ×2 (09:03→20:22)
[2020-02-05] MEDS: BENZTROPINE MESYLATE 1 MG TABLET PO SCH ×2 (09:03→20:22)
[2020-02-05] MEDS: DIVALPROEX SODIUM 500 MG DR TABLET PO SCH ×2 (09:04→20:22)
[2020-02-05 15:51] VITALS: BP 127/82
[2020-02-05] MEDS: OLANZapine 10 MG TABLET PO SCH (20:22)
[2020-02-05 20:25] VITALS: BP 104/62
[2020-02-05] MEDS: CefTRIAXone 1 GM/DEXTROSE 50 ML IV SCH (23:46)
[2020-02-06] MEDS: AZITHROMYCIN 500 MG/NS 250 ML IV SCH (00:40)
[2020-02-06 04:06] LABS: HIV 1-2 SCREEN 4TH GEN W/RFLX Non Reactive (Non Reactive)
[2020-02-06 05:00] VITALS: BP 99/51
[2020-02-06 08:15] VITALS: BP 103/63
[2020-02-06] MEDS: DIVALPROEX SODIUM 500 MG DR TABLET PO SCH ×2 (08:19→20:43)
[2020-02-06] MEDS: DOCUSATE SODIUM 100 MG CAPSULE PO SCH ×2 (08:20→20:43)
[2020-02-06] MEDS: FAMOTIDINE 10 MG/ML 2 ML VIAL IVP SCH (08:20)
[2020-02-06] MEDS: BusPIRone HCL 15 MG TABLET PO SCH ×2 (08:20→20:44)
[2020-02-06] MEDS: BENZTROPINE MESYLATE 1 MG TABLET PO SCH ×2 (08:20→20:45)
[2020-02-06 15:50] VITALS: BP 101/51
[2020-02-06 19:51] VITALS: BP 113/58
[2020-02-06] MEDS: OLANZapine 10 MG TABLET PO SCH (20:44)
[2020-02-07] MEDS: CefTRIAXone 1 GM/DEXTROSE 50 ML IV SCH ×2 (00:02→23:44)
[2020-02-07] MEDS: AZITHROMYCIN 500 MG/NS 250 ML IV SCH (01:21)
[2020-02-07 04:57] VITALS: BP 101/53
[2020-02-07 06:42] LABS: BASOPHILS % (AUTO) 0.5 % (0.0-2.0); EOSINOPHILS % (AUTO) 1.1 % (1.0-6.0); HEMATOCRIT 41.3 % (41-53); HEMOGLOBIN 14.2 g/dL (13.5-17.5); LYMPHOCYTES # (AUTO) 3.4 K/uL (1.0-4.8); LYMPHOCYTES % (AUTO) 53.1 % (22.0-44.0); MEAN CORPUSCULAR HEMOGLOBIN 31.5 pg (26.0-34.0); MEAN CORPUSCULAR HGB CONC 34.5 G/dL (31.0-37.0); MEAN CORPUSCULAR VOLUME 91 fL (80-100); MONOCYTES # (AUTO) 0.5 K/uL (0.1-1.0); MONOCYTES % (AUTO) 8.4 % (2.0-9.0); NEUTROPHILS # (AUTO) 2.4 K/uL (1.8-7.7); NEUTROPHILS % (AUTO) 36.9 % (40.0-70.0); PLATELET COUNT (AUTO) 245 K/uL (150-450); RED BLOOD CELL COUNT(AUTO) 4.53 MIL/uL (4.50-5.90); RED CELL DISTRIBUTION WIDTH 13.4 % (11.5-14.5)
[2020-02-07 07:08] LABS: ANION GAP 10 mmol/L (8-16); CALCIUM, TOTAL 8.7 mg/dL (8.8-10.5); CARBON DIOXIDE 25 mmol/L (22-29); CHLORIDE 104 mmol/L (98-107); CREATININE 0.98 mg/dL (0.60-1.30); GLOMERULAR FILTR. RATE CALC > 60 mL/min (>60); GLUCOSE,RANDOM 115 mg/dL (70-110); POTASSIUM 3.9 mmol/L (3.5-5.1); SODIUM SERUM 139 mmol/L (136-145); UREA NITROGEN, BLOOD 11 mg/dL (7-18)
[2020-02-07 08:11] VITALS: BP 96/49
[2020-02-07] MEDS: BusPIRone HCL 15 MG TABLET PO SCH ×2 (09:21→20:15)
[2020-02-07] MEDS: BENZTROPINE MESYLATE 1 MG TABLET PO SCH ×2 (09:21→20:15)
[2020-02-07] MEDS: DOCUSATE SODIUM 100 MG CAPSULE PO SCH ×2 (09:21→20:15)
[2020-02-07] MEDS: FAMOTIDINE 10 MG/ML 2 ML VIAL IVP SCH (09:21)
[2020-02-07] MEDS: DIVALPROEX SODIUM 500 MG DR TABLET PO SCH ×2 (09:21→20:26)
[2020-02-07 16:01] VITALS: BP 102/60
[2020-02-07 19:56] VITALS: BP 134/67
[2020-02-07] MEDS: OLANZapine 10 MG TABLET PO SCH (20:16)
[2020-02-08] MEDS: AZITHROMYCIN 500 MG/NS 250 ML IV SCH ×2 (00:58→23:54)
[2020-02-08 05:53] VITALS: BP 106/63
[2020-02-08 07:38] LABS: BASOPHILS % (AUTO) 0.3 % (0.0-2.0); EOSINOPHILS % (AUTO) 0.6 % (1.0-6.0); HEMATOCRIT 40.9 % (41-53); HEMOGLOBIN 13.6 g/dL (13.5-17.5); LYMPHOCYTES # (AUTO) 3.5 K/uL (1.0-4.8); LYMPHOCYTES % (AUTO) 54.8 % (22.0-44.0); MEAN CORPUSCULAR HEMOGLOBIN 30.5 pg (26.0-34.0); MEAN CORPUSCULAR HGB CONC 33.2 G/dL (31.0-37.0); MEAN CORPUSCULAR VOLUME 92 fL (80-100); MONOCYTES # (AUTO) 0.4 K/uL (0.1-1.0); MONOCYTES % (AUTO) 7.1 % (2.0-9.0); NEUTROPHILS # (AUTO) 2.4 K/uL (1.8-7.7); NEUTROPHILS % (AUTO) 37.2 % (40.0-70.0); PLATELET COUNT (AUTO) 244 K/uL (150-450); RED BLOOD CELL COUNT(AUTO) 4.44 MIL/uL (4.50-5.90); RED CELL DISTRIBUTION WIDTH 13.5 % (11.5-14.5)
[2020-02-08 07:43] LABS: ANION GAP 8 mmol/L (8-16); CALCIUM, TOTAL 8.1 mg/dL (8.8-10.5); CARBON DIOXIDE 29 mmol/L (22-29); CHLORIDE 104 mmol/L (98-107); CREATININE 1.01 mg/dL (0.60-1.30); GLOMERULAR FILTR. RATE CALC > 60 mL/min (>60); GLUCOSE,RANDOM 118 mg/dL (70-110); POTASSIUM 3.7 mmol/L (3.5-5.1); SODIUM SERUM 141 mmol/L (136-145); UREA NITROGEN, BLOOD 8 mg/dL (7-18)
[2020-02-08 07:46] VITALS: BP 95/62
[2020-02-08] MEDS: BusPIRone HCL 15 MG TABLET PO SCH ×2 (07:57→21:58)
[2020-02-08] MEDS: BENZTROPINE MESYLATE 1 MG TABLET PO SCH ×2 (07:57→21:58)
[2020-02-08] MEDS: DIVALPROEX SODIUM 500 MG DR TABLET PO SCH ×2 (07:57→21:58)
[2020-02-08] MEDS: FAMOTIDINE 10 MG/ML 2 ML VIAL IVP SCH (07:57)
[2020-02-08] MEDS: DOCUSATE SODIUM 100 MG CAPSULE PO SCH ×2 (07:57→21:58)
[2020-02-08 16:17] VITALS: BP 101/62
[2020-02-08 20:00] VITALS: BP 119/67
[2020-02-08] MEDS: OLANZapine 10 MG TABLET PO SCH (21:58)
[2020-02-08] MEDS: CefTRIAXone 1 GM/DEXTROSE 50 ML IV SCH (23:58)
[2020-02-09 04:30] VITALS: BP 101/51
[2020-02-09 08:02] VITALS: BP 104/65
[2020-02-09] MEDS: DIVALPROEX SODIUM 500 MG DR TABLET PO SCH ×2 (09:13→21:40)
[2020-02-09] MEDS: BusPIRone HCL 15 MG TABLET PO SCH ×2 (09:13→21:39)
[2020-02-09] MEDS: DOCUSATE SODIUM 100 MG CAPSULE PO SCH ×2 (09:13→21:40)
[2020-02-09] MEDS: BENZTROPINE MESYLATE 1 MG TABLET PO SCH ×2 (09:13→21:39)
[2020-02-09] MEDS: FAMOTIDINE 10 MG/ML 2 ML VIAL IVP SCH (09:13)
[2020-02-09 15:47] VITALS: BP 106/66
[2020-02-09] MEDS: OLANZapine 10 MG TABLET PO SCH (21:41)
[2020-02-10 05:09] VITALS: BP 101/70
[2020-02-10 07:34] VITALS: BP 93/60
[2020-02-10] MEDS: BENZTROPINE MESYLATE 1 MG TABLET PO SCH ×2 (08:30→20:10)
[2020-02-10] MEDS: BusPIRone HCL 15 MG TABLET PO SCH ×2 (08:31→20:08)
[2020-02-10] MEDS: DIVALPROEX SODIUM 500 MG DR TABLET PO SCH ×2 (08:31→20:10)
[2020-02-10] MEDS: DOCUSATE SODIUM 100 MG CAPSULE PO SCH ×2 (08:31→20:10)
[2020-02-10] MEDS: FAMOTIDINE 10 MG/ML 2 ML VIAL IVP SCH (08:32)
[2020-02-10 15:31] VITALS: BP 109/55
[2020-02-10] MEDS: OLANZapine 10 MG TABLET PO SCH (20:10)
[2020-02-10 20:19] VITALS: BP 128/77
[2020-02-11 05:40] VITALS: BP 89/51
[2020-02-11 08:16] VITALS: BP 94/50
[2020-02-11] MEDS: FAMOTIDINE 10 MG/ML 2 ML VIAL IVP SCH (09:00)
[2020-02-11] MEDS: BusPIRone HCL 15 MG TABLET PO SCH ×2 (09:08→20:39)
[2020-02-11] MEDS: BENZTROPINE MESYLATE 1 MG TABLET PO SCH ×2 (09:08→20:39)
[2020-02-11] MEDS: DIVALPROEX SODIUM 500 MG DR TABLET PO SCH ×2 (09:08→20:39)
[2020-02-11] MEDS: DOCUSATE SODIUM 100 MG CAPSULE PO SCH ×2 (09:08→20:39)
[2020-02-11 15:46] VITALS: BP 126/86
[2020-02-11] MEDS: OLANZapine 10 MG TABLET PO SCH (20:39)
[2020-02-11 20:44] VITALS: BP 108/66
[2020-02-12 05:08] VITALS: BP 116/59
[2020-02-12 08:20] VITALS: BP 92/55
[2020-02-12] MEDS: FAMOTIDINE 10 MG/ML 2 ML VIAL IVP SCH ×2 (09:00→09:39)
[2020-02-12] MEDS: BusPIRone HCL 15 MG TABLET PO SCH (09:38)
[2020-02-12] MEDS: DOCUSATE SODIUM 100 MG CAPSULE PO SCH (09:38)
[2020-02-12] MEDS: DIVALPROEX SODIUM 500 MG DR TABLET PO SCH (09:39)
[2020-02-12] MEDS: BENZTROPINE MESYLATE 1 MG TABLET PO SCH (09:39)
== END 2020-02-12 11:50 | DRG 194 ==
LOC: EMS 15:38 → 5N 20:45 → 6S 02-01 17:25
PROVIDERS: ADMIT Internal Medicine; ATTEND Internal Medicine
PROC: 3E0234Z Introduction of Serum, Toxoid and Vaccine into Muscle, Percutaneous Approach (ICD-10-PCS; principal; 2020-01-30)
DX: J18.9 Pneumonia, unspecified organism (principal); R45.851 Suicidal ideations; E44.0 Moderate protein-calorie malnutrition; F17.210 Nicotine dependence, cigarettes, uncomplicated; R76.11 Nonspecific reaction to tuberculin skin test without active tuberculosis; F25.9 Schizoaffective disorder, unspecified; K59.00 Constipation, unspecified; Z23 Encounter for immunization; Z91.5 Personal history of self-harm; Z03.818 Encounter for observation for suspected exposure to other biological agents ruled out; Z68.27 Body mass index [BMI] 27.0-27.9, adult
CPT/HCPCS: 74022; 86480; 87015; 87206; 87389; 87556; 87635; 87798; 90732; 94640; G0480; J0456; J0696; J1956; J2405; J3490; J7040; J7050

== ENCOUNTER 2020-08-03 07:38 | Inpatient (IN) | payer OTHER ==
[~2020-08-03] VITALS: Ht 167.6 cm; Wt 86.4 kg
[~2020-08-03 07:38] MED LIST changes: +DIVA-112 PO; -DIVA125SP PO; -DIVA500T52 PO; -FLUO-191 PO; -FLUT16H NASAL; -RISP4 PO
[2020-08-03] MEDS ORDERED: RISP0.5T20 PO (07:49)
[2020-08-03 08:22] LABS: BASOPHILS % (AUTO) 0.5 % (0.0-2.0); EOSINOPHILS % (AUTO) 1.5 % (1.0-6.0); HEMATOCRIT 42.9 % (41-53); HEMOGLOBIN 15.2 g/dL (13.5-17.5); LYMPHOCYTES # (AUTO) 2.4 K/uL (1.0-4.8); LYMPHOCYTES % (AUTO) 46.2 % (22.0-44.0); MEAN CORPUSCULAR HGB CONC 35.5 G/dL (31.0-37.0); MEAN CORPUSCULAR VOLUME 90 fL (80-100); MONOCYTES # (AUTO) 0.4 K/uL (0.1-1.0); MONOCYTES % (AUTO) 7.8 % (2.0-9.0); NEUTROPHILS # (AUTO) 2.3 K/uL (1.8-7.7); PLATELET COUNT (AUTO) 216 K/uL (150-450); RED BLOOD CELL COUNT(AUTO) 4.76 MIL/uL (4.50-5.90); RED CELL DISTRIBUTION WIDTH 12.3 % (11.5-14.5)
[2020-08-03 08:30] LABS: ANION GAP 12 mmol/L (8-16); CARBON DIOXIDE 25 mmol/L (22-29); CHLORIDE 102 mmol/L (98-107); CREATININE 0.87 mg/dL (0.60-1.30); GLOMERULAR FILTR. RATE CALC > 60 mL/min (>60); GLUCOSE,RANDOM 91 mg/dL (70-110); POTASSIUM 3.6 mmol/L (3.5-5.1); SODIUM SERUM 139 mmol/L (136-145); UREA NITROGEN, BLOOD 5 mg/dL (7-18)
[2020-08-03 08:36] LABS: ALANINE AMINOTRANSFERASE 34 U/L (12-78); ALBUMIN 4.3 g/dL (3.4-5.0); ALKALINE PHOSPHATASE 52 U/L (46-116); ASPARTATE AMINOTRANSFERASE 16 U/L (15-37); BILIRUBIN,TOTAL 0.5 mg/dL (0.1-1.0)
[2020-08-03 08:39] LABS: COVID AG,FIA SOURCE NASOPHARYNGEAL
[2020-08-03] MEDS ORDERED: ACETAMINOPHEN 325 MG TABLET PO PRN ×2 (09:15→12:00)
[2020-08-03] MEDS ORDERED: ONDANSETRON HCL 4 MG/2 ML VIAL IVP PRN (09:15)
[2020-08-03] MEDS ORDERED: 0.9% SODIUM CHLORIDE 10 ML SYRINGE IVP PRN (09:15)
[2020-08-03 09:49] VITALS: BP 110/79
[2020-08-03] MEDS ORDERED: ONDANSETRON HCL 4 MG TABLET PO PRN (12:00)
[2020-08-03] MEDS ORDERED: CloNIDine HCL 0.1 MG TABLET PO PRN (12:00)
[2020-08-03] MEDS ORDERED: PETROLATUM,WHITE 28 GM JELLY TP PRN (12:00)
[2020-08-03] MEDS ORDERED: MAG HYDROX/AL HYDROX/SIMETH ES 30 ML SUSPENSION UDCUP PO PRN (12:00)
[2020-08-03] MEDS ORDERED: LOPERAMIDE HCL 2 MG CAPSULE PO PRN (12:00)
[2020-08-03] MEDS ORDERED: NICOTINE 14 MG/24 HOUR PATCH TD PRN (12:00)
[2020-08-03] MEDS ORDERED: GuaiFENesin/D-METHORPHAN [SUGAR-FREE] 200-20MG/10 ML SYRUP UDCUP PO PRN (12:00)
[2020-08-03] MEDS ORDERED: IBUPROFEN 400 MG TABLET PO PRN (12:00)
[2020-08-03] MEDS ORDERED: ALBUTEROL SULFATE HFA 90 MCG/PUFF 8 GM INHALER IH PRN (12:00)
[2020-08-03] MEDS ORDERED: MAGNESIUM HYDROXIDE SUSPENSION 30 ML UDCUP PO PRN (12:00)
[2020-08-03] MEDS ORDERED: DOCUSATE SODIUM 100 MG CAPSULE PO PRN (12:00)
[2020-08-03] MEDS: BusPIRone HCL 5 MG TABLET PO SCH (19:54)
[2020-08-03] MEDS: RisperiDONE 3 MG TABLET PO SCH (19:55)
[2020-08-03 19:58] VITALS: BP 110/54
[2020-08-03 20:44] LABS: AMPHET/METH SCREEN,URINE NEGATIVE (NEGATIVE); BARBITURATE SCREEN, URINE NEGATIVE (NEGATIVE); BENZODIAZEPINES SCREEN,URINE NEGATIVE (NEGATIVE); CANNABINOID SCREEN,URINE NEGATIVE (NEGATIVE); COCAINE SCREEN,URINE NEGATIVE (NEGATIVE); METHADONE SCREEN, URINE NEGATIVE (NEGATIVE); OPIATE SCREEN,URINE NEGATIVE (NEGATIVE)
[2020-08-03 20:45] LABS: PHENCYCLIDINE SCREEN,URINE NEGATIVE (NEGATIVE)
[2020-08-04 05:03] VITALS: BP 112/68
[2020-08-04 08:09] VITALS: BP 136/74
[2020-08-04] MEDS: RisperiDONE 3 MG TABLET PO SCH ×2 (08:50→19:50)
[2020-08-04] MEDS: BusPIRone HCL 5 MG TABLET PO SCH ×3 (08:50→19:50)
[2020-08-04 19:45] VITALS: BP 128/75
[2020-08-05 04:41] VITALS: BP 124/78
[2020-08-05 07:42] VITALS: BP 121/79
[2020-08-05] MEDS: BusPIRone HCL 5 MG TABLET PO SCH ×3 (08:11→19:36)
[2020-08-05] MEDS: RisperiDONE 3 MG TABLET PO SCH ×2 (08:11→19:36)
[2020-08-05 19:42] VITALS: BP 118/68
[2020-08-06 03:44] VITALS: BP 118/81
[2020-08-06 07:51] VITALS: BP 127/84
[2020-08-06] MEDS: RisperiDONE 3 MG TABLET PO SCH ×2 (08:13→20:17)
[2020-08-06] MEDS: BusPIRone HCL 5 MG TABLET PO SCH ×3 (08:13→20:17)
[2020-08-06] MEDS: DIVALPROEX SODIUM 500 MG DR TABLET PO SCH ×2 (11:24→20:17)
[2020-08-06 20:18] VITALS: BP 113/63
[2020-08-06] MEDS ORDERED: ZOLPIDEM TARTRATE 5 MG TABLET PO PRN (21:15)
[2020-08-07 04:25] VITALS: BP 134/79
[2020-08-07 08:02] VITALS: BP 116/80
[2020-08-07] MEDS: DIVALPROEX SODIUM 500 MG DR TABLET PO SCH (08:06)
[2020-08-07] MEDS: RisperiDONE 3 MG TABLET PO SCH (08:06)
[2020-08-07] MEDS: BusPIRone HCL 5 MG TABLET PO SCH (08:06)
== END 2020-08-07 11:15 | DRG 885 ==
LOC: EMS 07:40 → UNDOADMIN 09:23 → 6S 09:23 → UNDOADMIN 09:45 → 6S 11:55
PROVIDERS: ADMIT Hospitalist; ATTEND Hospitalist
PROC: 0HQGXZZ Repair Left Hand Skin, External Approach (ICD-10-PCS; principal; 2020-08-03)
DX: F25.9 Schizoaffective disorder, unspecified (principal); R45.851 Suicidal ideations; S61.512A Laceration without foreign body of left wrist, initial encounter; X83.8XXA Intentional self-harm by other specified means, initial encounter; Y93.89 Activity, other specified; Y92.89 Other specified places as the place of occurrence of the external cause; Y99.8 Other external cause status; F41.9 Anxiety disorder, unspecified; E66.9 Obesity, unspecified; Z68.30 Body mass index [BMI] 30.0-30.9, adult; Z03.818 Encounter for observation for suspected exposure to other biological agents ruled out
CPT/HCPCS: 87426; G0480

== ENCOUNTER 2021-01-06 14:54 | Inpatient (IN) | payer OTHER ==
[~2021-01-06] VITALS: Ht 172.7 cm; Wt 99.8 kg
[~2021-01-06 14:54] MED LIST changes: -BENZ1TAB10 PO; -DIVA-112 PO; +MULT-248 PO; -OLAN10TA3 PO; +RISP2TAB45 PO
[2021-01-06] MEDS ORDERED: DIVA-80 PO (15:03)
[2021-01-06] MEDS ORDERED: BENZ1TAB10 PO (15:03)
[2021-01-06] MEDS ORDERED: TRIL4 PO (15:03)
[2021-01-06] MEDS ORDERED: BUSP10TA23 PO (15:35)
[2021-01-06] MEDS ORDERED: RisperiDONE 1 MG TABLET PO ONE (15:45)
[2021-01-06 16:33] LABS: BASOPHILS % (AUTO) 0.5 % (0.0-2.0); EOSINOPHILS % (AUTO) 2.6 % (1.0-6.0); HEMATOCRIT 43.1 % (41-53); HEMOGLOBIN 14.7 g/dL (13.5-17.5); LYMPHOCYTES # (AUTO) 2.1 K/uL (1.0-4.8); LYMPHOCYTES % (AUTO) 46.8 % (22.0-44.0); MEAN CORPUSCULAR HEMOGLOBIN 31.5 pg (26.0-34.0); MEAN CORPUSCULAR HGB CONC 34.1 G/dL (31.0-37.0); MEAN CORPUSCULAR VOLUME 92 fL (80-100); MONOCYTES # (AUTO) 0.4 K/uL (0.1-1.0); NEUTROPHILS # (AUTO) 1.8 K/uL (1.8-7.7); NEUTROPHILS % (AUTO) 41.1 % (40.0-70.0); PLATELET COUNT (AUTO) 204 K/uL (150-450); RED BLOOD CELL COUNT(AUTO) 4.66 MIL/uL (4.50-5.90)
[2021-01-06 16:34] LABS: COVID AG,FIA SOURCE NASOPHARYNGEAL
[2021-01-06] MEDS ORDERED: ONDANSETRON HCL 4 MG/2 ML VIAL IVP PRN (16:45)
[2021-01-06] MEDS ORDERED: ACETAMINOPHEN 325 MG TABLET PO PRN (16:45)
[2021-01-06] MEDS ORDERED: 0.9% SODIUM CHLORIDE 10 ML SYRINGE IVP PRN (16:45)
[2021-01-06 16:48] LABS: ANION GAP 8 mmol/L (8-16); CALCIUM, TOTAL 9.5 mg/dL (8.8-10.5); CARBON DIOXIDE 29 mmol/L (22-29); CHLORIDE 106 mmol/L (98-107); CREATININE 0.93 mg/dL (0.60-1.30); GLOMERULAR FILTR. RATE CALC > 60 mL/min (>60); GLUCOSE,RANDOM 94 mg/dL (70-110); POTASSIUM 4.5 mmol/L (3.5-5.1); SODIUM SERUM 143 mmol/L (136-145); UREA NITROGEN, BLOOD 8 mg/dL (7-18)
[2021-01-06 16:54] LABS: ALANINE AMINOTRANSFERASE 28 U/L (12-78); ALBUMIN 3.9 g/dL (3.4-5.0); ALKALINE PHOSPHATASE 48 U/L (46-116); ASPARTATE AMINOTRANSFERASE 16 U/L (15-37); BILIRUBIN,TOTAL 0.3 mg/dL (0.1-1.0)
[2021-01-06] MEDS ORDERED: IBUPROFEN 400 MG TABLET PO PRN (17:15)
[2021-01-06] MEDS ORDERED: MAGNESIUM HYDROXIDE SUSPENSION 30 ML UDCUP PO PRN (17:15)
[2021-01-06] MEDS ORDERED: MAG HYDROX/AL HYDROX/SIMETH ES 30 ML SUSPENSION UDCUP PO PRN (17:15)
[2021-01-06] MEDS ORDERED: NICOTINE 14 MG/24 HOUR PATCH TD PRN (17:15)
[2021-01-06] MEDS ORDERED: LOPERAMIDE HCL 2 MG CAPSULE PO PRN (17:15)
[2021-01-06] MEDS ORDERED: CloNIDine HCL 0.1 MG TABLET PO PRN (17:15)
[2021-01-06] MEDS ORDERED: DOCUSATE SODIUM 100 MG CAPSULE PO PRN (17:15)
[2021-01-06] MEDS ORDERED: ONDANSETRON HCL 4 MG TABLET PO PRN (17:15)
[2021-01-06] MEDS ORDERED: PETROLATUM,WHITE 28 GM JELLY TP PRN (17:15)
[2021-01-06] MEDS ORDERED: GuaiFENesin/D-METHORPHAN [SUGAR-FREE] 200-20MG/10 ML SYRUP UDCUP PO PRN (17:15)
[2021-01-06] MEDS ORDERED: ALBUTEROL SULFATE HFA 90 MCG/PUFF 8 GM INHALER IH PRN (17:15)
[2021-01-06 17:26] VITALS: BP 125/79
[2021-01-06 19:25] VITALS: BP 110/63
[2021-01-06] MEDS: BACITRACIN 28 GM OINTMENT TP SCH (21:04)
[2021-01-06] MEDS: BusPIRone HCL 10 MG TABLET PO SCH (21:04)
[2021-01-06] MEDS: DIVALPROEX SODIUM 500 MG ER TABLET PO SCH (21:04)
[2021-01-06] MEDS: BENZTROPINE MESYLATE 1 MG TABLET PO SCH (21:04)
[2021-01-06] MEDS: RisperiDONE 2 MG TABLET PO SCH (21:04)
[2021-01-06] MEDS: PERPHENAZINE 4 MG TABLET PO SCH (21:04)
[2021-01-06 22:31] LABS: APPEARANCE,URINE CLEAR (CLEAR); BILIRUBIN,URINE NEGATIVE (NEGATIVE); GLUCOSE, URINE (UA) NEGATIVE (NEGATIVE); KETONES,URINE NEGATIVE (NEGATIVE); LEUKOCYTE ESTERASE ,URINE NEGATIVE (NEGATIVE); NITRATE,URINE NEGATIVE (NEGATIVE); OCCULT BLOOD,URINE NEGATIVE (NEGATIVE); PROTEIN,URINE NEGATIVE (NEGATIVE); UROBILINOGEN,URINE 0.2 mg/dL (<=1.0)
[2021-01-06 22:37] LABS: AMPHET/METH SCREEN,URINE NEGATIVE (NEGATIVE); BARBITURATE SCREEN, URINE NEGATIVE (NEGATIVE); BENZODIAZEPINES SCREEN,URINE NEGATIVE (NEGATIVE); CANNABINOID SCREEN,URINE NEGATIVE (NEGATIVE); COCAINE SCREEN,URINE NEGATIVE (NEGATIVE); METHADONE SCREEN, URINE NEGATIVE (NEGATIVE); OPIATE SCREEN,URINE NEGATIVE (NEGATIVE)
[2021-01-06 22:38] LABS: PHENCYCLIDINE SCREEN,URINE NEGATIVE (NEGATIVE)
[2021-01-07 03:00] VITALS: BP 118/69
[2021-01-07 06:24] LABS: BASOPHILS % (AUTO) 0.5 % (0.0-2.0); EOSINOPHILS % (AUTO) 2.8 % (1.0-6.0); HEMATOCRIT 39.4 % (41-53); HEMOGLOBIN 13.5 g/dL (13.5-17.5); LYMPHOCYTES # (AUTO) 3.3 K/uL (1.0-4.8); MEAN CORPUSCULAR HEMOGLOBIN 31.3 pg (26.0-34.0); MEAN CORPUSCULAR HGB CONC 34.1 G/dL (31.0-37.0); MEAN CORPUSCULAR VOLUME 92 fL (80-100); MONOCYTES # (AUTO) 0.5 K/uL (0.1-1.0); MONOCYTES % (AUTO) 7.9 % (2.0-9.0); NEUTROPHILS # (AUTO) 1.8 K/uL (1.8-7.7); NEUTROPHILS % (AUTO) 31.8 % (40.0-70.0); PLATELET COUNT (AUTO) 196 K/uL (150-450); RED CELL DISTRIBUTION WIDTH 12.9 % (11.5-14.5)
[2021-01-07 06:59] LABS: ALANINE AMINOTRANSFERASE 23 U/L (12-78); ALBUMIN 3.3 g/dL (3.4-5.0); ALKALINE PHOSPHATASE 38 U/L (46-116); ANION GAP 8 mmol/L (8-16); ASPARTATE AMINOTRANSFERASE 12 U/L (15-37); BILIRUBIN,TOTAL 0.3 mg/dL (0.1-1.0); CALCIUM, TOTAL 8.6 mg/dL (8.8-10.5); CARBON DIOXIDE 27 mmol/L (22-29); CHLORIDE 107 mmol/L (98-107); CHOL/HDL RATIO 6.2 (4.2-7.3); CHOLESTEROL 199 mg/dL (131-200); CREATININE 0.98 mg/dL (0.60-1.30); GLOMERULAR FILTR. RATE CALC > 60 mL/min (>60); GLUCOSE,RANDOM 85 mg/dL (70-110); HDL CHOLESTEROL 32 mg/dL (40-60); LDL CHOL (CALC.) 126 mg/dL (0-130); POTASSIUM 3.9 mmol/L (3.5-5.1); SODIUM SERUM 142 mmol/L (136-145); THYROID STIMULATING HORMONE 2.77 uIU/mL (0.36-3.74); TOTAL PROTEIN, SERUM 6.8 g/dL (6.4-8.2); TRIGLYCERIDES 203 mg/dL (15-150); UREA NITROGEN, BLOOD 10 mg/dL (7-18)
[2021-01-07] MEDS: MULTIVITAMINS WITH MINERALS, THERAPEUTIC TABLET PO SCH (08:11)
[2021-01-07] MEDS: PERPHENAZINE 4 MG TABLET PO SCH ×2 (08:11→21:04)
[2021-01-07] MEDS: BENZTROPINE MESYLATE 1 MG TABLET PO SCH ×2 (08:12→21:04)
[2021-01-07] MEDS: DIVALPROEX SODIUM 500 MG ER TABLET PO SCH ×2 (08:12→21:09)
[2021-01-07] MEDS: BACITRACIN 28 GM OINTMENT TP SCH ×2 (08:12→21:05)
[2021-01-07] MEDS: BusPIRone HCL 10 MG TABLET PO SCH ×3 (08:12→21:04)
[2021-01-07] MEDS: RisperiDONE 2 MG TABLET PO SCH ×3 (08:12→21:04)
[2021-01-07 08:49] VITALS: BP 104/80
[2021-01-07 12:02] VITALS: BP 109/71
[2021-01-07 16:12] VITALS: BP 128/82
[2021-01-07 19:33] VITALS: BP 114/83
[2021-01-08 05:27] VITALS: BP 124/78
[2021-01-08 07:11] VITALS: BP 117/79
[2021-01-08] MEDS: MULTIVITAMINS WITH MINERALS, THERAPEUTIC TABLET PO SCH (09:42)
[2021-01-08] MEDS: DIVALPROEX SODIUM 500 MG ER TABLET PO SCH ×2 (09:42→20:16)
[2021-01-08] MEDS: BENZTROPINE MESYLATE 1 MG TABLET PO SCH ×2 (09:42→20:16)
[2021-01-08] MEDS: BusPIRone HCL 10 MG TABLET PO SCH ×3 (09:42→20:16)
[2021-01-08] MEDS: PERPHENAZINE 4 MG TABLET PO SCH ×2 (09:43→20:16)
[2021-01-08] MEDS: RisperiDONE 2 MG TABLET PO SCH ×3 (09:43→20:16)
[2021-01-08] MEDS: BACITRACIN 28 GM OINTMENT TP SCH ×2 (09:46→20:19)
[2021-01-08 19:23] VITALS: BP 112/76
[2021-01-09 04:35] VITALS: BP 119/69
[2021-01-09 08:00] VITALS: BP 117/74
[2021-01-09] MEDS: BusPIRone HCL 10 MG TABLET PO SCH ×3 (08:52→19:45)
[2021-01-09] MEDS: BENZTROPINE MESYLATE 1 MG TABLET PO SCH ×2 (08:52→19:45)
[2021-01-09] MEDS: DIVALPROEX SODIUM 500 MG ER TABLET PO SCH ×2 (08:52→19:46)
[2021-01-09] MEDS: MULTIVITAMINS WITH MINERALS, THERAPEUTIC TABLET PO SCH (08:52)
[2021-01-09] MEDS: BACITRACIN 28 GM OINTMENT TP SCH ×2 (08:52→19:46)
[2021-01-09] MEDS: PERPHENAZINE 4 MG TABLET PO SCH ×2 (08:52→19:45)
[2021-01-09] MEDS: RisperiDONE 2 MG TABLET PO SCH ×3 (08:52→19:45)
[2021-01-09 17:38] VITALS: BP 120/76
[2021-01-09 19:22] VITALS: BP 125/79
[2021-01-10 04:12] VITALS: BP 110/73
[2021-01-10 08:02] VITALS: BP 106/78
[2021-01-10] MEDS: DIVALPROEX SODIUM 500 MG ER TABLET PO SCH ×2 (08:27→20:37)
[2021-01-10] MEDS: BACITRACIN 28 GM OINTMENT TP SCH ×2 (08:27→20:37)
[2021-01-10] MEDS: BENZTROPINE MESYLATE 1 MG TABLET PO SCH ×2 (08:27→20:37)
[2021-01-10] MEDS: PERPHENAZINE 4 MG TABLET PO SCH ×2 (08:27→20:36)
[2021-01-10] MEDS: BusPIRone HCL 10 MG TABLET PO SCH ×3 (08:27→20:36)
[2021-01-10] MEDS: RisperiDONE 2 MG TABLET PO SCH ×3 (08:27→20:36)
[2021-01-10] MEDS: MULTIVITAMINS WITH MINERALS, THERAPEUTIC TABLET PO SCH (08:28)
[2021-01-10 19:18] VITALS: BP 115/79
[2021-01-10 23:00] VITALS: BP 118/80
[2021-01-11 07:51] VITALS: BP 122/77
[2021-01-11] MEDS: MULTIVITAMINS WITH MINERALS, THERAPEUTIC TABLET PO SCH (08:24)
[2021-01-11] MEDS: RisperiDONE 2 MG TABLET PO SCH ×3 (08:24→21:17)
[2021-01-11] MEDS: PERPHENAZINE 4 MG TABLET PO SCH ×2 (08:25→21:17)
[2021-01-11] MEDS: BusPIRone HCL 10 MG TABLET PO SCH ×3 (08:25→21:17)
[2021-01-11] MEDS: BENZTROPINE MESYLATE 1 MG TABLET PO SCH ×2 (08:25→21:17)
[2021-01-11] MEDS: DIVALPROEX SODIUM 500 MG ER TABLET PO SCH ×2 (08:25→21:17)
[2021-01-11] MEDS: BACITRACIN 28 GM OINTMENT TP SCH ×2 (09:18→21:19)
[2021-01-11 15:30] VITALS: BP 115/73
[2021-01-11 19:21] VITALS: BP 117/78
[2021-01-12 05:46] VITALS: BP 103/75
[2021-01-12 08:08] VITALS: BP 117/76
[2021-01-12] MEDS: BusPIRone HCL 10 MG TABLET PO SCH ×3 (08:34→20:25)
[2021-01-12] MEDS: MULTIVITAMINS WITH MINERALS, THERAPEUTIC TABLET PO SCH (08:34)
[2021-01-12] MEDS: BENZTROPINE MESYLATE 1 MG TABLET PO SCH ×2 (08:34→20:25)
[2021-01-12] MEDS: RisperiDONE 2 MG TABLET PO SCH ×3 (08:34→20:25)
[2021-01-12] MEDS: DIVALPROEX SODIUM 500 MG ER TABLET PO SCH ×2 (08:34→20:25)
[2021-01-12] MEDS: PERPHENAZINE 4 MG TABLET PO SCH ×2 (08:34→20:25)
[2021-01-12] MEDS: BACITRACIN 28 GM OINTMENT TP SCH ×2 (09:02→21:00)
[2021-01-12 19:45] VITALS: BP 119/78
[2021-01-13 06:00] VITALS: BP 109/67
[2021-01-13] MEDS: DIVALPROEX SODIUM 500 MG ER TABLET PO SCH ×2 (08:27→20:33)
[2021-01-13] MEDS: RisperiDONE 2 MG TABLET PO SCH ×3 (08:27→20:33)
[2021-01-13] MEDS: PERPHENAZINE 4 MG TABLET PO SCH ×2 (08:27→20:33)
[2021-01-13] MEDS: MULTIVITAMINS WITH MINERALS, THERAPEUTIC TABLET PO SCH (08:27)
[2021-01-13] MEDS: BENZTROPINE MESYLATE 1 MG TABLET PO SCH ×2 (08:27→20:33)
[2021-01-13] MEDS: BusPIRone HCL 10 MG TABLET PO SCH ×3 (08:27→20:34)
[2021-01-13] MEDS: BACITRACIN 28 GM OINTMENT TP SCH ×2 (08:28→20:38)
[2021-01-13 08:34] VITALS: BP 119/81
[2021-01-13 19:20] VITALS: BP 126/90
[2021-01-13] MEDS: ACETAMINOPHEN 325 MG TABLET PO PRN (20:32)
[2021-01-14 04:53] VITALS: BP 100/69
[2021-01-14 07:35] VITALS: BP 114/78
[2021-01-14] MEDS: BusPIRone HCL 10 MG TABLET PO SCH ×3 (08:37→20:33)
[2021-01-14] MEDS: MULTIVITAMINS WITH MINERALS, THERAPEUTIC TABLET PO SCH (08:38)
[2021-01-14] MEDS: DIVALPROEX SODIUM 500 MG ER TABLET PO SCH ×2 (08:38→20:33)
[2021-01-14] MEDS: BENZTROPINE MESYLATE 1 MG TABLET PO SCH ×2 (08:38→20:33)
[2021-01-14] MEDS: PERPHENAZINE 4 MG TABLET PO SCH ×3 (08:38→20:36)
[2021-01-14] MEDS: BACITRACIN 28 GM OINTMENT TP SCH ×2 (08:39→20:39)
[2021-01-14] MEDS: RisperiDONE 2 MG TABLET PO SCH ×3 (08:39→20:33)
[2021-01-14] MEDS: PARoxetine HCL 20 MG TABLET PO SCH (10:59)
[2021-01-14] MEDS: ACETAMINOPHEN 325 MG TABLET PO PRN (15:06)
[2021-01-14 19:38] VITALS: BP 117/78
[2021-01-15 05:00] VITALS: BP 101/59
[2021-01-15 07:33] VITALS: BP 108/56
[2021-01-15] MEDS: PERPHENAZINE 4 MG TABLET PO SCH ×2 (08:16→20:02)
[2021-01-15] MEDS: MULTIVITAMINS WITH MINERALS, THERAPEUTIC TABLET PO SCH (08:17)
[2021-01-15] MEDS: DIVALPROEX SODIUM 500 MG ER TABLET PO SCH ×2 (08:17→20:02)
[2021-01-15] MEDS: PARoxetine HCL 20 MG TABLET PO SCH (08:17)
[2021-01-15] MEDS: BENZTROPINE MESYLATE 1 MG TABLET PO SCH ×2 (08:17→20:02)
[2021-01-15] MEDS: BusPIRone HCL 10 MG TABLET PO SCH ×3 (08:17→20:02)
[2021-01-15] MEDS: RisperiDONE 2 MG TABLET PO SCH ×3 (08:18→20:02)
[2021-01-15] MEDS: BACITRACIN 28 GM OINTMENT TP SCH ×2 (08:18→20:04)
[2021-01-15 15:27] VITALS: BP 116/75
[2021-01-15] MEDS: ACETAMINOPHEN 325 MG TABLET PO PRN (15:34)
[2021-01-15 19:20] VITALS: BP 121/81
[2021-01-16 04:45] VITALS: BP 109/64
[2021-01-16 07:57] VITALS: BP 108/73
[2021-01-16] MEDS: DIVALPROEX SODIUM 500 MG ER TABLET PO SCH ×2 (08:17→20:05)
[2021-01-16] MEDS: RisperiDONE 2 MG TABLET PO SCH ×3 (08:17→20:06)
[2021-01-16] MEDS: MULTIVITAMINS WITH MINERALS, THERAPEUTIC TABLET PO SCH (08:17)
[2021-01-16] MEDS: PERPHENAZINE 4 MG TABLET PO SCH ×2 (08:17→20:06)
[2021-01-16] MEDS: PARoxetine HCL 20 MG TABLET PO SCH (08:17)
[2021-01-16] MEDS: BusPIRone HCL 10 MG TABLET PO SCH ×3 (08:17→20:06)
[2021-01-16] MEDS: BENZTROPINE MESYLATE 1 MG TABLET PO SCH ×2 (08:17→20:05)
[2021-01-16] MEDS: BACITRACIN 28 GM OINTMENT TP SCH ×2 (09:00→20:06)
[2021-01-16 20:09] VITALS: BP 110/65
[2021-01-17 05:00] VITALS: BP 111/73
[2021-01-17 07:27] VITALS: BP 98/54
[2021-01-17] MEDS: RisperiDONE 2 MG TABLET PO SCH ×3 (08:57→20:18)
[2021-01-17] MEDS: PARoxetine HCL 20 MG TABLET PO SCH (08:57)
[2021-01-17] MEDS: DIVALPROEX SODIUM 500 MG ER TABLET PO SCH ×2 (08:57→20:18)
[2021-01-17] MEDS: MULTIVITAMINS WITH MINERALS, THERAPEUTIC TABLET PO SCH (08:57)
[2021-01-17] MEDS: BusPIRone HCL 10 MG TABLET PO SCH ×3 (08:57→20:18)
[2021-01-17] MEDS: PERPHENAZINE 4 MG TABLET PO SCH ×2 (08:57→20:18)
[2021-01-17] MEDS: BENZTROPINE MESYLATE 1 MG TABLET PO SCH ×2 (08:58→20:18)
[2021-01-17] MEDS: BACITRACIN 28 GM OINTMENT TP SCH ×2 (08:58→20:18)
[2021-01-17 19:50] VITALS: BP 100/69
[2021-01-18 07:47] VITALS: BP 105/61
[2021-01-18] MEDS: PERPHENAZINE 4 MG TABLET PO SCH ×2 (08:00→20:28)
[2021-01-18] MEDS: RisperiDONE 2 MG TABLET PO SCH ×3 (08:00→20:27)
[2021-01-18] MEDS: PARoxetine HCL 20 MG TABLET PO SCH (08:01)
[2021-01-18] MEDS: BusPIRone HCL 10 MG TABLET PO SCH ×3 (08:01→20:28)
[2021-01-18] MEDS: DIVALPROEX SODIUM 500 MG ER TABLET PO SCH ×2 (08:01→20:27)
[2021-01-18] MEDS: BENZTROPINE MESYLATE 1 MG TABLET PO SCH ×2 (08:01→20:28)
[2021-01-18] MEDS: MULTIVITAMINS WITH MINERALS, THERAPEUTIC TABLET PO SCH (08:01)
[2021-01-18] MEDS: BACITRACIN 28 GM OINTMENT TP SCH ×2 (08:02→20:28)
[2021-01-18] MEDS ORDERED: ITRACONAZOLE 100 MG CAPSULE PO ONE (14:00)
[2021-01-18 19:19] VITALS: BP 116/77
[2021-01-18 23:10] VITALS: BP 108/64
[2021-01-19 08:00] VITALS: BP 125/79
[2021-01-19] MEDS: ITRACONAZOLE 100 MG CAPSULE PO SCH (08:18)
[2021-01-19] MEDS: MULTIVITAMINS WITH MINERALS, THERAPEUTIC TABLET PO SCH (08:18)
[2021-01-19] MEDS: BusPIRone HCL 10 MG TABLET PO SCH ×3 (08:18→20:08)
[2021-01-19] MEDS: PERPHENAZINE 4 MG TABLET PO SCH ×2 (08:18→20:08)
[2021-01-19] MEDS: KETOCONAZOLE 2% 120 ML SHAMPOO TP SCH (08:18)
[2021-01-19] MEDS: DIVALPROEX SODIUM 500 MG ER TABLET PO SCH ×2 (08:19→20:08)
[2021-01-19] MEDS: PARoxetine HCL 20 MG TABLET PO SCH (08:19)
[2021-01-19] MEDS: BENZTROPINE MESYLATE 1 MG TABLET PO SCH ×2 (08:19→20:08)
[2021-01-19] MEDS: BACITRACIN 28 GM OINTMENT TP SCH ×2 (08:19→20:09)
[2021-01-19] MEDS: RisperiDONE 2 MG TABLET PO SCH ×3 (08:19→20:08)
[2021-01-19] MEDS: THIAMINE 100 MG TABLET PO SCH (08:19)
[2021-01-19] MEDS: FOLIC ACID 1 MG TABLET PO SCH (08:19)
[2021-01-19 15:20] VITALS: BP 124/80
[2021-01-19 19:48] VITALS: BP 120/74
[2021-01-20 04:42] VITALS: BP 114/75
[2021-01-20 07:17] VITALS: BP 120/73
[2021-01-20] MEDS: ITRACONAZOLE 100 MG CAPSULE PO SCH (08:02)
[2021-01-20] MEDS: DIVALPROEX SODIUM 500 MG ER TABLET PO SCH (08:02)
[2021-01-20] MEDS: THIAMINE 100 MG TABLET PO SCH (08:02)
[2021-01-20] MEDS: RisperiDONE 2 MG TABLET PO SCH ×2 (08:02→16:16)
[2021-01-20] MEDS: BusPIRone HCL 10 MG TABLET PO SCH ×2 (08:02→16:16)
[2021-01-20] MEDS: MULTIVITAMINS WITH MINERALS, THERAPEUTIC TABLET PO SCH (08:02)
[2021-01-20] MEDS: PARoxetine HCL 20 MG TABLET PO SCH (08:02)
[2021-01-20] MEDS: PERPHENAZINE 4 MG TABLET PO SCH (08:02)
[2021-01-20] MEDS: FOLIC ACID 1 MG TABLET PO SCH (08:03)
[2021-01-20] MEDS: BACITRACIN 28 GM OINTMENT TP SCH (08:03)
[2021-01-20] MEDS: BENZTROPINE MESYLATE 1 MG TABLET PO SCH (08:03)
[2021-01-20] MEDS: KETOCONAZOLE 2% 120 ML SHAMPOO TP SCH (08:04)
[2021-01-20] MEDS ORDERED: FOLI-130 PO (13:11)
[2021-01-20] MEDS ORDERED: BACI28.42 TP (13:11)
[2021-01-20] MEDS ORDERED: ITRA100 PO (13:12)
[2021-01-20] MEDS ORDERED: NIZO2SH TP (13:14)
[2021-01-20] MEDS ORDERED: PARO-38 PO (13:16)
[2021-01-20] MEDS ORDERED: THIA100T80 PO (13:17)
[2021-01-20] MEDS: ACETAMINOPHEN 325 MG TABLET PO PRN (16:18)
== END 2021-01-20 17:26 | DRG 885 ==
LOC: EMS 14:54 → 6S 17:03
PROVIDERS: ADMIT Internal Medicine; ATTEND Internal Medicine
PROC: 0HQEXZZ Repair Left Lower Arm Skin, External Approach (ICD-10-PCS; principal; 2021-01-06)
DX: F25.1 Schizoaffective disorder, depressive type (principal); R45.851 Suicidal ideations; S61.512A Laceration without foreign body of left wrist, initial encounter; E66.3 Overweight; Z20.822 Contact with and (suspected) exposure to COVID-19; S61.511A Laceration without foreign body of right wrist, initial encounter; B36.0 Pityriasis versicolor; F41.9 Anxiety disorder, unspecified; X79.XXXA Intentional self-harm by blunt object, initial encounter; Y93.89 Activity, other specified; Y92.89 Other specified places as the place of occurrence of the external cause; Z68.33 Body mass index [BMI] 33.0-33.9, adult; Z91.5 Personal history of self-harm; Y99.8 Other external cause status
CPT/HCPCS: 12002; 83036; 84443; 87426; 99285; G0480